=== PATIENT | female | born 1945 | race Caucasian/White ===

== ENCOUNTER → 2017-07-13 | Outpatient (CLI) | payer BC ==
[~2017-07-13] MED LIST: CLB/200 PO; CYAN10005 PO; CYCL0.052 OP; LORA10TA57 PO; MISCCAP80 PO; NSNN50; NXM/40 PO; VITA1CAP59 PO
[2017-07-13 12:13] LABS: BASO % 0.4 %; BASO ABS # 0.02 K/uL (0-0.2); COMPLETE YES; EOS % 1.2 %; HEMATOCRIT 37.4 % (37-47); IG% 0.2 %; LYMPH % 28.3 %; LYMPH ABS # 1.43 K/uL (1.2-3.4); MEAN CELL VOLUME 95.2 fL (80-100); MEAN CORPUSCULAR HEMOGLOBIN 32.1 pg (25-34); MEAN CORPUSCULAR HGB CONC 33.7 g/dl (32-36); MONO % 6.9 %; PLATELET COUNT 291 K/uL (130-400); RED BLOOD COUNT 3.93 M/uL (4.2-5.4); WHITE BLOOD COUNT 5.05 K/uL (4.8-10.8)
[2017-07-13 12:22] LABS: ESTIMATED AVERAGE GLUCOSE 111 mg/dl; HA1C FLAG Normal (Normal)
[2017-07-13 12:25] LABS: ALT/SGPT 27 U/L (12-78); AST/SGOT 21 U/L (15-37); BLOOD UREA NITROGEN 14 mg/dl (7-18); CALCIUM 8.8 mg/dl (8.5-10.1); CARBON DIOXIDE 29 mmol/L (21-32); CHLORIDE 102 mmol/L (98-107); GLUCOSE 83 mg/dl (70-99); POTASSIUM 4.6 mmol/L (3.5-5.1); SODIUM 136 mmol/L (136-145); URIC ACID 4.5 mg/dl (2.6-7.2)
[2017-07-13 12:34] LABS: ALB/GLOB RATIO 1.1 (0.9-2); ALKALINE PHOSPHATASE 99 U/L (45-117); CHOLESTEROL 269 mg/dl (0-200); CHOLESTEROL/HDL RATIO 3.9; HDL CHOLESTEROL 69 mg/dl; LDL CHOLESTEROL CALCULATED 186 mg/dl; PHOSPHORUS 3.3 mg/dl (2.5-4.9); TRIGLYCERIDES 72 mg/dl (0-150); VERY LOW DENSITY LIPOPROT CALC 14 mg/dl
--- NOTE | 2017-07-13 12:44 | DIAGNOSTIC IMAGING REPORT ---
CHEST 2 VIEWS ROUTINE CLINICAL HISTORY: CHEST CONGESTION dyspnea COMPARISON STUDY: 04/12/2016 FINDINGS: The bones soft tissues and hemidiaphragms are normal. The cardiomediastinal silhouette is normal. The lungs are clear. The pulmonary vasculature is normal. IMPRESSION: Negative chest. The above report was generated using voice recognition software. It may contain grammatical, syntax or spelling errors. Electronically signed by: Korey Selby M.D. 07/13/2017 12:43 PM Dictated Date/Time: 07/13/2017 12:43 PM
[2017-07-14 11:56] LABS: C-REACTIVE PROT HIGHSEN 3.4 MG/L
--- NOTE | 2017-07-17 09:18 | PULMONARY FUNCTION TEST ---
CLINICAL DATA: 72-year-old female with a height of 62 inches and a weight of [address] Michael for evaluation of shortness of breath and chest congestion. The patient apparent is using Symbicort. Spirometry pre- and post-bronchodilator, lung volumes, and DLCO were performed. FINDINGS: Pre-bronchodilator spirometry is within normal limits. FVC is 96% of predicted. FEV1 is 93% of predicted. [id number] is 82% of predicted. There was improvement in small airway flow after inhaled bronchodilator. FVC dropped by 2% to 94% of predicted. FEV1 increased 3% to 96% of predicted. [id number] improved 45% to 119% of predicted. Lung volumes demonstrated a slight reduction in residual volume at 62% of predicted. DLCO was normal at 80% of predicted. IMPRESSION: Normal baseline spirometry with improvement in small airway flow after inhaled bronchodilator possibly consistent with mild small airway obstruction. MTDD
--- NOTE | 2017-07-25 09:20 | CODING QUERY MEDICAL NECESSITY ---
CQSUPPORTING DIAGNOSIS NEEDED A supporting diagnosis is required for the test/procedure performed on this patient in order for us to be reimbursed by the patient's insurance. Please provide a supporting diagnosis for the following test/procedure listed below next to the test name along with your signature. *If there is no additional diagnosis for this patient that would support the following test/procedure please document that below next to the test/procedure. Test(s)/Procedure(s) that require a supporting diagnosis: DOS 07/13/17 C-REACTIVE PROTEIN HIGH SENSITIVITY TESTING Provider Signature: Date: Thank you Ariella Gómez Health Information Management Once completed, please kindly fax back to [phone] For questions please call [phone]
== END | disposition home or self-care (01) ==
LOC: C.RC 10:21
PROVIDERS: ATTEND Family Medicine
DX: R06.02 Shortness of breath (principal); R09.89 Other specified symptoms and signs involving the circulatory and respiratory systems; R73.09 Other abnormal glucose; E55.9 Vitamin D deficiency, unspecified; D51.9 Vitamin B12 deficiency anemia, unspecified

== ENCOUNTER → 2017-09-05 | Outpatient (CLI) | payer BC ==
[~2017-09-05] MED LIST changes: +LORA-749 PO; -LORA10TA57 PO
[2017-09-05 16:32] LABS: COMPLETE YES; HEMATOCRIT 37.6 % (37-47); IG% 0.9 %; LYMPH % 14.8 %; LYMPH ABS # 1.26 K/uL (1.2-3.4); MEAN CELL VOLUME 96.4 fL (80-100); MEAN CORPUSCULAR HEMOGLOBIN 32.1 pg (25-34); MEAN CORPUSCULAR HGB CONC 33.2 g/dl (32-36); MEAN PLATELET VOLUME 9.7 fL (7.4-10.4); MONO % 3.6 %; NEUT % 80.7 %; PLATELET COUNT 364 K/uL (130-400)
[2017-09-07 21:32] LABS: ALPHA-1-ANTITRYPSIN TC 67710E 142 MG/DL (83-199); IGG SERUM 901 mg/dL (694-1618)
== END | disposition home or self-care (01) ==
LOC: C.LAB 15:07
PROVIDERS: ATTEND Family Medicine
DX: R06.09 Other forms of dyspnea (principal)

== ENCOUNTER → 2017-10-03 | Outpatient (CLI) | payer BC | END | disposition home or self-care (01) | LOC: C.LAB1850 07:41 | PROVIDERS: ATTEND Internal Medicine Critical Care Medicine | DX: R06.09 Other forms of dyspnea (principal) ==

== ENCOUNTER → 2017-10-30 | Outpatient (CLI) | payer BC ==
--- NOTE | 2017-10-30 15:09 | MAMMOGRAPHY REPORT ---
BILATERAL DIGITAL SCREENING MAMMOGRAM TOMOSYNTHESIS WITH CAD: 10/30/2017 CLINICAL HISTORY: Routine screening. Patient has no complaints. TECHNIQUE: Breast tomosynthesis in addition to standard 2D mammography was performed. Current study was also evaluated with a Computer Aided Detection (CAD) system. COMPARISON: Comparison is made to exams dated: 09/07/2016 mammogram, 09/03/2015 mammogram, 07/23/2014 mammogram, 07/17/2013 mammogram, 07/11/2012 mammogram, and 07/05/2011 mammogram - [facility]. BREAST COMPOSITION: There are scattered areas of fibroglandular density in both breasts. FINDINGS: There are scattered benign rim calcifications in both breasts. Mild vascular calcificatio n in the breasts as well. No suspicious mass, architectural distortion or cluster of suspicious micro calcifications is seen. IMPRESSION: ACR BI-RADS CATEGORY 2: BENIGN There is no mammographic evidence of malignancy. A 1 year screening mammogram is recommended. The pa tient will receive written notification of the results. Approximately 10% of breast cancers are not detected with mammography. A negative mammographic report should not delay biopsy if a clinically suggestive mass is present. Deneen Horton M.D. ay/:10/30/2017 11:24:25 Student Assistance Counselor: Altagracia HWANG)(Ja), [facility] letter sent: Normal 1/2 BI-RADS Code: ACR BI-RADS Category 2: Benign
== END | disposition home or self-care (01) ==
LOC: C.MAMM 10:29
PROVIDERS: ATTEND Obstetrics & Gynecology
DX: Z12.31 Encounter for screening mammogram for malignant neoplasm of breast (principal)

== ENCOUNTER → 2017-10-30 | Outpatient (CLI) | payer BC | END | disposition home or self-care (01) | LOC: C.PAPS 16:25 | PROVIDERS: ATTEND Obstetrics & Gynecology | DX: Z01.419 Encounter for gynecological examination (general) (routine) without abnormal findings (principal) ==

== ENCOUNTER → 2018-02-26 | Outpatient (CLI) | payer BC ==
--- NOTE | 2018-02-26 10:39 | DIAGNOSTIC IMAGING REPORT ---
FUSION CT SINUSES W/O HISTORY: J31.0 Chronic [id number] Chronic sinusitis TECHNIQUE: Multiaxial CT images of the sinuses were performed reformatted in the coronal plane without the use of intravenous contrast. Fusion CT protocol was also obtained. COMPARISON STUDY: None. FINDINGS: The frontal sinuses, maxillary sinuses, left ethmoid air cells, and mastoid air cells are clear. Small fluid levels within the sphenoid sinuses. The right-sided sinuses hypoplastic in comparison to the left. Partial opacification of a single right ethmoid air cell with bubbly secretions. Left nasal septal deviation. The lamina papyracea and overall floors are intact. The bilateral ostomy units are patent. The pterygopalatine fossa are well-maintained. The orbits and visualized brain parenchyma are unremarkable. IMPRESSION: 1. Mild sinus disease involving the right ethmoid air cells and sphenoid sinuses as described above. 2. Left nasal septal deviation. Electronically signed by: Mark Ballard M.D. 02/26/2018 10:37 AM Dictated Date/Time: 02/26/2018 10:31 AM
== END | disposition home or self-care (01) ==
LOC: C.CTS 10:18
DX: J31.0 Chronic rhinitis (principal); J32.9 Chronic sinusitis, unspecified; J34.2 Deviated nasal septum

== ENCOUNTER → 2018-03-06 | Outpatient (CLI) | payer BC ==
[2018-03-06 09:38] LABS: BASO % 0.4 %; BASO ABS # 0.02 K/uL (0-0.2); EOS % 2.6 %; EOS ABS # 0.12 K/uL (0-0.5); HEMATOCRIT 37.2 % (37-47); HEMOGLOBIN 12.4 g/dL (12.0-16.0); IG# 0.01 K/uL (0.00-0.02); LYMPH % 40.4 %; MEAN CELL VOLUME 93.7 fL (80-100); MEAN CORPUSCULAR HEMOGLOBIN 31.2 pg (25-34); MEAN CORPUSCULAR HGB CONC 33.3 g/dl (32-36); MEAN PLATELET VOLUME 10.1 fL (7.4-10.4); MONO % 4.9 %; MONO ABS # 0.23 K/uL (0.11-0.59); NEUT % 51.5 %; NEUT ABS # 2.42 K/uL (1.4-6.5); PLATELET COUNT 305 K/uL (130-400); RED CELL DISTRIBUTION WIDTH CV 13.6 % (11.5-14.5); RED CELL DISTRIBUTION WIDTH SD 46.8 fL (36.4-46.3)
[2018-03-06 10:25] LABS: HEMOGLOBIN A1C 5.6 % (4.5-5.6)
[2018-03-06 13:45] LABS: ALBUMIN 3.5 gm/dl (3.4-5.0); ALT/SGPT 27 U/L (12-78); AST/SGOT 21 U/L (15-37); BLOOD UREA NITROGEN 20 mg/dl (7-18); CALCIUM 8.7 mg/dl (8.5-10.1); CARBON DIOXIDE 31 mmol/L (21-32); CHOLESTEROL 254 mg/dl (0-200); CREATININE 0.89 mg/dl (0.60-1.20); GLUCOSE 79 mg/dl (70-99); POTASSIUM 4.3 mmol/L (3.5-5.1); SODIUM 140 mmol/L (136-145); URIC ACID 5.3 mg/dl (2.6-7.2)
[2018-03-06 13:55] LABS: ALKALINE PHOSPHATASE 125 U/L (45-117); LDL CHOLESTEROL CALCULATED 168 mg/dl; TOTAL PROTEIN 7.4 gm/dl (6.4-8.2); TRANSFERRIN 258 mg/dl (200-360)
== END | disposition home or self-care (01) ==
LOC: C.LAB 07:45
PROVIDERS: ATTEND Family Medicine
DX: E88.81 Metabolic syndrome and other insulin resistance (principal); E55.9 Vitamin D deficiency, unspecified; D51.9 Vitamin B12 deficiency anemia, unspecified; E78.9 Disorder of lipoprotein metabolism, unspecified; R53.83 Other fatigue

== ENCOUNTER 2020-08-11 05:18 | Observation (INO) ==
--- NOTE | 2020-07-21 14:38 | PAT Medication Instructions ---
Medication Instructions Date of Service July 21, 2020 Home Medications Medication Instructions Recorded clindamycin HCl 300 mg capsule 600 mg PO ONCE #2 cap 07/06/20 Imodium Multi-Symptom Relief 1 tab PO QPM Probiotic 3,000 mmu cells PO QPM Restasis 2 drp OPHTHALMIC (EYE) BID Vitamin M-C-I-Iodine 1 tab PO 3XWK celecoxib [Celebrex] 200 mg PO BID cetirizine [Zyrtec] 5 mg PO DAILY PRN cyanocobalamin (vitamin B-12) [Vitamin B-12] 1,000 mcg PO 3XWK esomeprazole magnesium [Nexium] 40 mg PO QPM amlodipine 2.5 mg PO QPM resveratrol 1 tab PO QPM turmeric 400 mg PO QPM clindamycin HCl 300 mg capsule 600 mg PO ONCE acetaminophen [Tylenol Arthritis Pain] 1,300 mg PO Q12H PRN sodium chloride [Saline Nasal Mist] 2 spray INTRANASAL HS Continue as directed clindamycin HCl 300 mg capsule 600 mg PO ONCE ASK your surgeon for instructions celecoxib [Celebrex] 200 mg PO BID STOP taking 2 weeks before surgery resveratrol 1 tab PO QPM turmeric 400 mg PO QPM DO NOT take the morning of surgery Vitamin Z-A-X-Iodine 1 tab PO 3XWK cetirizine [Zyrtec] 5 mg PO DAILY PRN Take morning of surgery With a small sip of water, OTHERWISE NOTHING TO EAT OR DRINK AFTER MIDNIGHT: Restasis 2 drp OPHTHALMIC (EYE) BID acetaminophen [Tylenol Arthritis Pain] 1,300 mg PO Q12H PRN (if needed, may be taken up to four hours before surgery) Take evening before surgery Imodium Multi-Symptom Relief 1 tab PO QPM Probiotic 3,000 mmu cells PO QPM Restasis 2 drp OPHTHALMIC (EYE) BID cetirizine [Zyrtec] 5 mg PO DAILY PRN (if needed) esomeprazole magnesium [Nexium] 40 mg PO QPM amlodipine 2.5 mg PO QPM acetaminophen [Tylenol Arthritis Pain] 1,300 mg PO Q12H PRN (if needed) sodium chloride [Saline Nasal Mist] 2 spray INTRANASAL HS Other Notes If you have any questions please call us at [phone] or [phone] or [phone] or [phone]
--- NOTE | 2020-07-22 13:08 | Anesthesiology Consultation ---
Date of Service July 22, 2020 Assessment & Plan (1) Encounter for pre-operative examination: COVID Status: As of 07/22 assessment, patient denies travel to endemic area, known exposure/sick contacts, or symptoms of COVID19. Patient instructed that they and their household members must follow strict social distancing guidelines, wear a mask in public and avoid travel for 14 days prior to surgery. Preoperative COVID19 testing to be completed prior to surgery per surgeon's a rrangements (08/06 per pt). Patient made aware to self-isolate as much as possible between COVID testing and surgery. Patient will be traveling to her summer [place] in [place], [place] prior to surgery. That [facility] has far fewer cases of COVID-19 than [place]. She will be back one week prior to her COVID testing. Chart Review Chart Review: Acceptable Risk for Surgery and Patient seen in Pre Admission Testing Teaching & Discussion Instructed NPO after midnight before surgery, except medications with 15 cc of water. Medication instructions provided according to the PAT guidelines. History Surgery Operation Date: 08/11/20 12:50 Proposed Procedures p Left Total Knee Arthroplasty - Jaison Fisher MD Height/Weight Height: 5 ft 1 in Weight: 68 kg Allergies Allergy/AdvReac Type Severity Reaction Status Date / Time Penicillins Allergy Unknown hives Verified 07/16/20 11:08 azithromycin AdvReac Mild diarrhea Verified 07/16/20 11:08 [From Zithromax Z-Aaron] codeine AdvReac Unknown nausea/vomi Verified 07/16/20 11:08 ting lansoprazole AdvReac Unknown diarrhea Verified 07/16/20 11:08 Medications Home Medications Medication Instructions Recorded Confirmed Last Taken Imodium Multi-Symptom Relief 1 tab PO QPM 07/12/18 07/16/20 08/15/18 20:00 Probiotic 3,000 mmu cells PO QPM 07/12/18 07/16/20 08/15/18 20:00 Restasis 2 drp OPHTHALMIC (EYE) BID 07/12/18 07/16/20 08/16/18 02:00 Vitamin R-P-M-Iodine 1 tab PO 3XWK 07/12/18 07/16/20 07/27/18 20:00 celecoxib [Celebrex] 200 mg PO BID 07/12/18 07/16/20 08/15/18 20:00 cetirizine [Zyrtec] 5 mg PO DAILY PRN 07/12/18 07/16/20 08/15/18 20:00 cyanocobalamin (vitamin B-12) 1,000 mcg PO 3XWK 07/12/18 07/16/20 07/27/18 20:00 [Vitamin B-12] esomeprazole magnesium [Nexium] 40 mg PO QPM 07/12/18 07/16/20 08/15/18 20:00 amlodipine 2.5 mg PO QPM 08/16/18 07/16/20 08/15/18 20:00 resveratrol 1 tab PO QPM 01/06/20 07/16/20 Unknown turmeric 400 mg PO QPM 01/06/20 07/16/20 Unknown clindamycin HCl 300 mg capsule 600 mg PO ONCE #2 cap 07/06/20 07/16/20 Unknown acetaminophen [Tylenol Arthritis 1,300 mg PO Q12H PRN 07/16/20 07/16/20 Unknown Pain] sodium chloride [Saline Nasal Mist] 2 spray INTRANASAL HS 07/16/20 07/16/20 Unknown Past Medical History Medical History Allergic rhinitis Anemia Stable per patient Cervical spinal stenosis Denies limited ROM but does have paresthesias to LEs bilaterally Chronic obstructive pulmonary disease "mild" Deviated nasal septum GERD (gastroesophageal reflux disease) Well controlled and stable History of basal cell carcinoma History of hypothyroidism Has been off med for three months per PCP instructions- was only on Synthy roid 25mcg- feels well Hyperlipidemia -BORDERLINE-NO MEDS Hypertension Irritable bowel disease Osteoarthritis Personal history of peptic ulcer disease Temporomandibular joint disorder CLICKS DOES NOT LOCK Exercise / Class Metabolic Activity II 4-5 Yardwork/Stairs/Walk up hill (Does 1 FOS daily at home) Past Family History Family History Father Family history of diabetes mellitus Grandmother Family history of diabetes mellitus Family/Other No problems noted. Grandfather Family history- stomach cancer Other No family history of adverse response to anesthesia Past Surgical History Surgical History History of anesthesia reaction "shivering" History of basal cell carcinoma (BCC) excision History of bilateral tubal ligation History of colonoscopy History of dilatation and curettage X 3 History of esophagogastroduodenoscopy (EGD) History of right knee joint replacement Right TKA: 08/16/18: SAB x1 at L2/3 + PNB at [facility] History of tonsillectomy History of tooth extraction Hx of hemorrhoidectomy S/P sclerotherapy of varicose veins Past Anesthesia History No Hx of Anesthesia Complications (other than shiviering post-op) and No Family Hx of Anesthesia Complications History of PONV No Hx of PONV and No Hx of Motion Sickness Social History Smoking Status: Never smoker Do You Dip or Chew Tobacco: No Hx Alcohol Use: Yes Alcohol type: wine alcohol intake frequency: a few times a week Hx Substance Use: No substance use type: does not use Review of Systems Pt denies any recent chest pain (nothing other than GERD/heartburn), shortness of breath, palpitations, cough, fever, URI, or uncontrolled acid reflux. +rhinitis with reflexive cough Physical Exam Vital Signs BP: 127/83 P: 81bpm SPO2: 98% RA T: 97.9 F R: 12 ENMT Mouth: + dental restorations (one crown on lower L biscuspid); no chipped teeth and no loose teeth Thyromental Distance: > or= 3.5 Finger Breadths Mallampati Class: II Neck normal visual inspection; neck extension not limited Respiratory normal respiratory effort Auscultation: lungs clear to auscultation bilaterally Cardiovascular Rate/Rhythm: regular rate and regular rhythm Heart Sounds: no murmur Extremities: no edema Testing Laboratory Results PT 10.3 Seconds (9.0-12.0) 07/22/20 13:18 INR 1.0 (0.9-1.1) 07/22/20 13:18 APTT 27.3 Seconds (21.0-31.0) 07/22/20 13:18 Blood Type O Positive 07/22/20 13:18 Antibody Screen NEGATIVE 07/22/20 13:18 07/07/20 WBC: 5.85 H/H: 12.2/36.8 PLATELETS: 335 SODIUM: 140 POTASSIUM: 4.4 CHLORIDE: 106 CO2: 30 BUN: 20 CREATININE: 0.89 GLUCOSE: 90 Pulmonary Function Test Date: 07/17/17 Normal baseline spirometry with improvement in small airway flow after inhaled bronchodilator possibly consistent with mild small airway obstruction. Other Testing Electrocardiogram Date: 01/06/20 Findings: + NSR @ (62) and + no change from (Jul 19, 2018) Chest X-Ray Date: 01/06/20 Findings: + NAD
[2020-07-22 14:52] LABS: Partial Thromboplastin Time 27.3 Seconds (21.0-31.0); Prothrombin Time 10.3 Seconds (9.0-12.0)
[2020-08-11] MEDS ORDERED: LR 500ML BOLUS, THEN 15ML/HR IV SCH (06:00)
[2020-08-11] MEDS ORDERED: METOCLOPRAMIDE HCL 10 MG TABLET PO SCH (06:00)
[2020-08-11] MEDS ORDERED: TRANEXAMIC ACID 1,000 MG **IV Intra-op IV SCH (06:00)
[2020-08-11] MEDS ORDERED: ACETAMINOPHEN 500 MG TAB PO SCH (06:00)
[2020-08-11] MEDS ORDERED: BUPIVACAINE LIPOSOME/PF 266 MG, BUPIVACAINE/EPINEPHRINE 50 ML, SODIUM CHLORIDE 0.9% 30 ... INFIL SCH (06:00)
[2020-08-11] MEDS ORDERED: ceFAZolin 2000MG 2,000 MG/15 ML SYR IV SCH (06:00)
[2020-08-11] MEDS ORDERED: GABAPENTIN 300 MG CAP PO SCH (06:00)
[2020-08-11] MEDS ORDERED: FAMOTIDINE 20 MG TAB PO SCH (06:00)
[2020-08-11] MEDS ORDERED: LR 60ML/HR IV SCH (06:00)
[2020-08-11] MEDS ORDERED: fentaNYL citrate 100 MCG/2 ML VIAL ONE (06:20)
[2020-08-11] MEDS ORDERED: MIDAZOLAM HCL 1 MG/ML 2ML VIAL ONE (06:21)
[2020-08-11] MEDS ORDERED: PROPOFOL IV EMULSION 10 MG/ML 20 ML VIAL IV ONE (06:22)
[2020-08-11] MEDS ORDERED: BUPIVACAINE/EPINEPHRINE 0.25% 1:200,000 30 ML VIAL ONE ×2 (06:26→06:28)
[2020-08-11] MEDS ORDERED: BUPIVACAINE 0.5 % 5 MG/1 ML PF 10ML VIAL ONE (06:26)
[2020-08-11] MEDS ORDERED: DEXAMETHASONE SOD INJ 4 MG/ML VIAL ONE (06:27)
[2020-08-11] MEDS ORDERED: BACITRACIN INJ 50,000 UNIT VIAL ONE (06:28)
[2020-08-11] MEDS ORDERED: BUPIVACAINE LIPOSOME 1.3% 266 MG/20 ML VIAL ONE (06:28)
[2020-08-11] MEDS ORDERED: SODIUM CHLORIDE 0.9% PF 50 ML VIAL ONE (06:28)
--- NOTE | 2020-08-11 06:51 | History & Physical Bridge Note ---
Date of Service August 11, 2020 History & Physical Bridge Note I have examined the patient, reviewed the History & Physical and in the interval since the performance of the History & Physical I have noted the following changes of clinical significance: no changes noted
[2020-08-11] MEDS ORDERED: fentaNYL citrate 100 MCG/2 ML VIAL IV PRN (07:02)
[2020-08-11] MEDS ORDERED: ePHEDrine sulfate 50 MG/ML AMP IV PRN (07:02)
[2020-08-11] MEDS ORDERED: ONDANSETRON INJ 2 MG/ML 2 ML VIAL IV PRN ×2 (07:02→10:00)
[2020-08-11] MEDS ORDERED: ATROPINE SULFATE 0.1 MG/ML 10ML SYR IV PRN (07:02)
--- NOTE | 2020-08-11 08:34 | Post Operative Brief Note ---
PG Immediate Post Op with CF Date of Surgery August 11, 2020 Pre & Post Diagnosis Operation Date: 08/11/20 07:00 Pre-Op Diagnosis: Left Knee Degenerative Joint Disease Post-Op Diagnosis: Left Knee Degenerative Joint Disease I identified the patient and participated in the time-out.: Yes Procedure Operation Date: 08/11/20 07:00 Actual Procedures p Left Total Knee Arthroplasty, Cemented(Left) - Jaison Fisher MD Surgeon Jaison Fisher MD [employer], [facility] Estimated Blood Loss 50 Findings Consistent with Post-Op Diagnosis Fluids 700 cc Specimens Specimen Description: Permanent Specimen A: Left knee bone and tissue Drains [place] Catheter Anesthesia Type Spinal MAC Complications none Disposition Accompanied Patient To Recovery: No Disposition: Recovery Room
--- NOTE | 2020-08-11 08:46 | Operative Report ---
Post Operative Report Pre & Post Diagnosis Operation Date: 08/11/20 07:00 Pre-Op Diagnosis: Left Knee Degenerative Joint Disease Post-Op Diagnosis: Left Knee Degenerative Joint Disease I identified the patient and participated in the time-out.: Yes Procedure Operation Date: 08/11/20 07:00 Actual Procedures p Left Total Knee Arthroplasty, Cemented(Left) - Jaison Fisher MD Surgeon Jaison Fisher MD Fly [employer], PAC Estimated Blood Loss 50 Findings Consistent with Post-Op Diagnosis Operative findings revealed advanced left knee DJD. She had extensive grade 4 disease in all 3 compartments with a valgus deformity to her knee and a tight IT band. She had a flexion contracture about 10 degrees and a moderate sized knee joint effusion. Fluids 700 cc. Specimens Left knee sent for pathology. Drains None. Anesthesia Type Spinal MAC Complications none Disposition Accompanied Patient To Recovery: No Disposition: Recovery Room Indications Patient is a 75-year-old female has a long history of bilateral knee pain discomfort. She has been through extensive conservative treatment the past. She had a right knee replaced about 2 years ago and is done well from this. She continued be limited by left knee pain and discomfort. She failed all conservative measures and elected proceed with total knee arthroplasty. Description of Procedure Operative implants consist of: 1. Biomet Vanguard size 62.5 left posterior stabilized femoral component. 2. Biomet size 67 tibial tray. 3. 10 mm posterior stabilized polyethylene insert. 4. 28 x 8 all polypatella. Patient was taken to the operating identified and placed on the operating table supine position but all contact areas were properly padded. IV antibiotics arrived by anesthesia team. Spinal anesthetic and abductor canal block had been provided in the holding area. [place] catheter was placed in sterile fashion. A left thigh turn was then placed in the left lower extremities and prepped draped in usual sterile fashion. The left leg was elevated exsanguinated with use of an Esmarch and turns placed at 300 mmHg. An anterior posterior left knee was then performed to longitudinal incision centered over the patella. Sharp dissection got through subcutaneous is down the extensor mechanism. A medial parapatellar arthrotomy incision was made. Some subperiosteal dissection was carried out medially. The fat pad was resected from each patella tendon. Lateral patellofemoral ligament was released. Patella was subluxated laterally and the knee was flexed. The osteophytes were taken off distal femur. The ACL and PCL were then released from the distal femur and the tibia subluxate anteriorly. The external tibial alignment jig was then placed in the interface the tibia and adjusted 12 mm medially. Proximal tibial cut was made to remove about 2 to 3 mm of bone from the most deficient aspect medial till plateau. The tibia was sized to a size 67. Attention drawn the femur. The distal femur was entered with a sharp drop with intramedullary canal was suction. A left 5 degree valgus cutting guide was placed. The distal femoral cutting block was pinned in place. The distal femoral cut was made to take an additional 3 mm of bone off distal femur. The femur was then sized to a size 62.5. I did downsize this almost an entire size due to the narrow medial and lateral dimensions of her femur. We brought the knee out in extension I did do her release and pie crusting of the IT band in order to equalize extension gap. The knee was then flexed. The AP cutting block was pinned parallel to the epicondylar axis which was 6 degrees of external rotation. The anterior cut, anterior chamfer, posterior cut, posterior chamfer cuts were made. Box cutting guide was placed in just slight lateral and the box cut was made. The knee was flexed. The remnants of the medial lateral menisci were excised. The osteophytes were taken off the posterior aspect of her femur. A trial femoral component was placed. The tibial tray was pinned in maximum external rotation and the drill and stem punch were used to create defect in proximal tip for the tibial tray. Knee was then trialed and 10 mm insert fit most appropriately. Attention drawn the patella. The patella was quite worn. It was measured and the thickness was 19. I cut this down to 12 mm in thickness. It was sized to a size 28 patella. The lug holes were drilled for the 28 patella. The lateral osteophyte was removed. Patella button was placed. Knee was taken through range of motion patella tracked nicely with no thumbs test. We elected to place these implants. All trial implants were removed. A bone plug was placed in the distal femur limit blood loss put a double batch Palacos G cement was mixed. A Biomet Vanguard size 62.5 left posterior stabilized femoral component, size 67 tibial tray, a 10 mm posterior stabilized polyethylene insert, and a 28 x 8 all polypatella were then cemented in place. Knee was brought out in full extension total cement hardened On cement check was then performed. The pericapsular tissues were injected with total 100 cc of combination of 20 cc of Exparel, 30 cc normal saline, 50 cc of quarter percent Marcaine with epinephrine. Patient did receive 1 g tranexamic acid. The tourniquet was then let down for final tourniquet time of 53 minutes. Hemostasis assured use electrocautery. Extensor mechanism closed with combina tion 1 PDS suture #1 Vicryl suture in [id number]-egdix fashion. Extensor mechanism checked found to be intact with the subcutaneous tissue then closed with 2 Dexon suture in a buried interrupted fashion skin was closed skin teofilo. Leg was then cleaned and dried and sterile dressing both Xeroform, 4 fourths, sterile cast padding, Dwayne bandage applied. Patient then transferred to the recovery room in stable condition. Patient tolerated procedure well and there were no complications. Eric Parikh, my physician orthotics assistant, was present for the entire procedure. His assistance was required and essential for appropriate patient positioning, prepping and draping, surgical exposure, retraction, performing the technical details of the operation, placing the implants, closing the wound, and placement of the sterile bandage. I attest to the content of the Intraoperative Record and any orders documented therein. Any exceptions are noted below.
--- NOTE | 2020-08-11 08:58 | XRay Report ---
LEFT KNEE 2 VIEWS History: Left total knee arthroplasty. Degenerative arthritis. Postop. FINDINGS: The patient is status post a left total knee arthroplasty. The hardware is intact. No fract ure or dislocation. Skin teofilo are in place. IMPRESSION: Left total knee arthroplasty. No evidence for hardware complication. ACT 112: Negative or not required by law. Electronically signed by: Mark Ballard M.D. 08/11/2020 8:57 AM
--- NOTE | 2020-08-11 09:51 | Anesthesiology Progress Note ---
Date of Service August 11, 2020 Anesthesia Post Procedure Vital Signs Vital Signs: Temp Pulse Pulse Resp BP Pulse Ox 08/11/20 09:30 36.3 C L 61 13 124/70 100 08/11/20 09:20 62 13 134/73 100 08/11/20 09:10 63 12 121/67 100 08/11/20 09:00 62 13 121/64 100 08/11/20 08:50 69 19 112/66 100 08/11/20 08:40 36.1 C L 70 16 112/64 100 08/11/20 05:48 36.7 C 82 18 162/95 H 98 Transfer of Care Handoff Completed per policy Notes Mental Status: alert / awake / arousable Patient Amnestic to Procedure: Yes Nausea / Vomiting: adequately controlled Pain: adequately controlled Airway Patency, RR, SpO2: stable & adequate BP & HR: stable & adequate Hydration State: stable & adequate Neuraxial Anesthesia: was administered and sensory block is resolving Anesthetic Complications: no major complications apparent and Pt Satisfied with anesthetic care
[2020-08-11] MEDS ORDERED: NALOXONE HCL 0.4 MG/1 ML VIAL/CARP IV PRN (10:00)
[2020-08-11] MEDS ORDERED: bisacodyL 10 MG SUPP PR PRN (10:00)
[2020-08-11] MEDS ORDERED: CETIRIZINE HCL 10 MG TABLET PO PRN (10:00)
[2020-08-11] MEDS ORDERED: MAGNESIUM HYDROXIDE SUSP 30 ML UDC PO PRN (10:00)
[2020-08-11] MEDS ORDERED: HYDROmorphone INJ 0.5 MG/0.5 ML SYR IV PRN (10:00)
[2020-08-11] MEDS ORDERED: ALUMINUM/MAGNESIUM SUSP 30 ML UDC PO PRN (10:00)
[2020-08-11] MEDS ORDERED: [UNRECOGNIZED DRUG - OTHER] PO SCH (10:00)
[2020-08-11] MEDS ORDERED: METOCLOPRAMIDE HCL INJ 5 MG/ML 2 ML VIAL IV PRN (10:00)
[2020-08-11] MEDS: ASPIRIN 81 MG ECTAB PO SCH ×2 (11:58→21:52)
[2020-08-11] MEDS: DOCUSATE SODIUM 100 MG CAP PO SCH ×2 (11:58→21:49)
[2020-08-11] MEDS: MULTIVITAMIN TAB PO SCH (11:58)
[2020-08-11] MEDS: KETOROLAC TROMETHAMINE 15 MG/ML VIAL IV SCH ×3 (11:58→22:03)
[2020-08-11] MEDS: SODIUM CHLORIDE 0.9% 1000ML 1,000 ML IV SCH ×2 (12:03→21:49)
--- NOTE | 2020-08-11 13:18 | Progress Notes ---
DATE: 08/11/2020 SUBJECTIVE: A 75-year-old female postop from a left knee replacement. She is doing well. Really not having any pain yet. Nerve function is just gradually returning. No chest pain or shortness of breath. Not feeling dizzy or lightheaded. OBJECTIVE: VITAL SIGNS: Temperature 36.4. Vital signs stable. GENERAL: Shows a pleasant elderly female. She is sitting up in bed and talking to her . She looks comfortable. LUNGS: Clear to auscultation. HEART: Has a regular rate and rhythm. ABDOMEN: Soft, nontender, nondistended. EXTREMITIES: Grossly neurovascularly intact except as follows: Examination of the left leg reveals the leg to be well aligned. She can just slightly dorsiflex her foot but it is still weak. She has better but incomplete foot and toe flexion. She has got brisk refill. Good distal pulse. X-RAYS: X-rays of the left knee from the recovery room were reviewed. It shows a left cemented posterior stabilized total knee arthroplasty. Components looked to be in good position. No signs of problems. ASSESSMENT: A 75-year-old female postoperative from left knee replacement, doing well. Pain is controlled. Her nerve function is just returning. PLAN: 1. DVT prophylaxis including thigh-high TEDs, SCDs, and aspirin twice a day. 2. PT/OT. Weight bear as tolerated. Left total knee protocol. 3. Pain control, doing okay with current pain regimen. We will have to adjust meds as the spinal wears off. 4. IV antibiotics x24 hours. 5. Disposition: Plan to discharge to home with some home health once adequately recovered and medically stable.
[2020-08-11] MEDS ORDERED: TRANEXAMIC ACID / 0.7% NACL 1,000 MG/100 ML BAG IV SCH (14:37)
[2020-08-11] MEDS: ACETAMINOPHEN 500 MG TAB PO SCH ×2 (15:11→21:54)
[2020-08-11] MEDS: ceFAZolin 1000MG 1,000 MG/7.5 ML SYR IV SCH ×2 (15:11→22:03)
[2020-08-11] MEDS: FERROUS GLUCONATE 324 MG TAB PO SCH (17:29)
[2020-08-11] MEDS: ASCORBIC ACID 500 MG TAB PO SCH (17:31)
[2020-08-11] MEDS ORDERED: NON-FORMULARY MEDICATION (Turmeric 400 MG) PO SCH (21:00)
[2020-08-11] MEDS ORDERED: RESVERATROL PO SCH (21:00)
[2020-08-11] MEDS: LOPERAMIDE HCL 2 MG CAP PO SCH (21:49)
[2020-08-11] MEDS: SENNA 8.6 MG TAB PO SCH (21:49)
[2020-08-11] MEDS: SIMETHICONE 80 MG CHEW PO SCH (21:50)
[2020-08-11] MEDS: PANTOprazole 40 MG TAB PO SCH (21:52)
[2020-08-11] MEDS: amLODIPine BESYLATE 5 MG TAB PO SCH (21:53)
[2020-08-11] MEDS: ADVANCED PROBIOTIC 1250 MG CAPSULE PO SCH (21:53)
[2020-08-11] MEDS: SODIUM CHLORIDE 0.65% NA SOLN 45 ML (OCEAN) NAE SCH (21:54)
[2020-08-11] MEDS: traMADol HCL 50 MG TABLET PO PRN (23:47)
[2020-08-12] MEDS: ACETAMINOPHEN 500 MG TAB PO SCH ×3 (05:55→22:04)
[2020-08-12] MEDS: KETOROLAC TROMETHAMINE 15 MG/ML VIAL IV SCH ×4 (05:55→22:04)
[2020-08-12 05:58] LABS: Hematocrit (blood only) 28.5 % (37-47); Hemoglobin 9.3 g/dL (12.0-16.0); Mean Corpuscular Hemoglobin 30.9 pg (25-34); Mean Corpuscular Hgb Conc 32.6 g/dL (32-36); Mean Corpuscular Volume 94.7 fL (80-100); Mean Platelet Volume 10.2 fL (7.4-10.4); Platelet Count 265 K/uL (130-400); RDW Coefficient of Variation 13.3 % (11.5-14.5); RDW Standard Deviation 46.3 fL (36.4-46.3); Red Blood Count 3.01 M/uL (4.2-5.4); White Blood Count 12.19 K/uL (4.8-10.8)
[2020-08-12 06:22] LABS: BUN Creatinine Ratio 23.2 (10-20); Calcium 8.2 mg/dl (8.5-10.1); Est GFR (African American) 87.4; Est GFR (Non-African American) 75.4; Potassium 3.6 mmol/L (3.5-5.1)
[2020-08-12] MEDS ORDERED: CYANOCOBALAMIN 500 MCG TABLET (VITAMIN B-12) PO SCH (09:00)
[2020-08-12] MEDS: ASCORBIC ACID 500 MG TAB PO SCH ×2 (09:11→17:58)
[2020-08-12] MEDS: MULTIVITAMIN TAB PO SCH (09:11)
[2020-08-12] MEDS: FERROUS GLUCONATE 324 MG TAB PO SCH ×2 (09:11→17:58)
[2020-08-12] MEDS: ASPIRIN 81 MG ECTAB PO SCH ×2 (09:11→20:48)
[2020-08-12] MEDS: DOCUSATE SODIUM 100 MG CAP PO SCH ×3 (09:12→16:34)
[2020-08-12] MEDS: traMADol HCL 50 MG TABLET PO PRN ×2 (13:08→20:51)
[2020-08-12] MEDS: SENNA 8.6 MG TAB PO SCH ×2 (16:34→20:50)
[2020-08-12] MEDS: LOPERAMIDE HCL 2 MG CAP PO SCH (16:35)
[2020-08-12] MEDS: SIMETHICONE 80 MG CHEW PO SCH (16:35)
[2020-08-12] MEDS: amLODIPine BESYLATE 5 MG TAB PO SCH (20:48)
[2020-08-12] MEDS: SODIUM CHLORIDE 0.65% NA SOLN 45 ML (OCEAN) NAE SCH (20:49)
[2020-08-12] MEDS: ADVANCED PROBIOTIC 1250 MG CAPSULE PO SCH (20:49)
--- NOTE | 2020-08-12 20:49 | Progress Notes ---
DATE: 08/12/2020 SUBJECTIVE: A 75-year-old female postop day 1 from a left knee replacement. She is doing pretty well. Having some pain but manageable. No chest pain or shortness of breath. Not feeling dizzy or lightheaded. OBJECTIVE: VITAL SIGNS: Temperature is 36.6. Vital signs stable. GENERAL: Shows a pleasant elderly female. She is lying in bed, looks pretty comfortable. EXTREMITIES: Examination of the left leg reveals the leg to be well aligned. Dressing is clean, dry and intact. She can dorsiflex and plantarflex her foot appropriately. She is neurologically intact. LABORATORY DATA: Hemoglobin 9.3. Hematocrit 28.5. White cell count 12.19. Electrolytes are stable. ASSESSMENT: A 75-year-old female postoperative day 1 from a left knee replacement. She is doing pretty well. Pain is reasonably well controlled. Therapy went okay today. PLAN: 1. DVT prophylaxis including thigh-high TEDs, SCDs, and aspirin twice a day. 2. PT/OT. Weight bear as tolerated. Left total knee protocol. 3. Pain control, doing okay with current pain regimen. 4. Disposition: Plan to discharge to home with some home health likely later tomorrow.
[2020-08-12] MEDS: PANTOprazole 40 MG TAB PO SCH (20:50)
[2020-08-13] MEDS: KETOROLAC TROMETHAMINE 15 MG/ML VIAL IV SCH (05:31)
[2020-08-13] MEDS: ACETAMINOPHEN 500 MG TAB PO SCH ×2 (05:31→13:25)
[2020-08-13 07:03] LABS: Basophils # (auto) 0.03 K/uL (0-0.2); Basophils % (auto) 0.3 %; Eosinophils # (auto) 0.05 K/uL (0-0.5); Eosinophils % (auto) 0.4 %; Hematocrit (blood only) 31.5 % (37-47); Hemoglobin 10.5 g/dL (12.0-16.0); Immature Granulocytes # (auto) 0.02 K/uL (0.00-0.02); Immature Granulocytes % (auto) 0.2 %; Lymphocytes % (auto) 18.4 %; Mean Corpuscular Hemoglobin 31.8 pg (25-34); Mean Corpuscular Hgb Conc 33.3 g/dL (32-36); Mean Corpuscular Volume 95.5 fL (80-100); Mean Platelet Volume 10.7 fL (7.4-10.4); Monocytes % (auto) 10.5 %; Neutrophils % (auto) 70.2 %; Platelet Count 290 K/uL (130-400); RDW Coefficient of Variation 13.5 % (11.5-14.5); RDW Standard Deviation 47.1 fL (36.4-46.3)
[2020-08-13] MEDS: ASPIRIN 81 MG ECTAB PO SCH (08:32)
[2020-08-13] MEDS: ASCORBIC ACID 500 MG TAB PO SCH ×2 (08:32→10:07)
[2020-08-13] MEDS: FERROUS GLUCONATE 324 MG TAB PO SCH ×2 (08:32→10:07)
[2020-08-13] MEDS: DOCUSATE SODIUM 100 MG CAP PO SCH (08:33)
[2020-08-13] MEDS: MULTIVITAMIN TAB PO SCH ×2 (08:33→10:07)
[2020-08-13] MEDS: traMADol HCL 50 MG TABLET PO PRN (08:52)
--- NOTE | 2020-08-13 20:27 | Progress Notes ---
DATE: 08/13/2020 SUBJECTIVE: A 75-year-old female postop day 2 from a left knee replacement. She is doing okay. Pain has been controlled. She is a little bit nauseated this morning. No chest pain or shortness of breath. Not feeling dizzy or lightheaded. OBJECTIVE: VITAL SIGNS: Temperature 36.6. Vital signs stable. GENERAL: Shows a pleasant, middle-aged female. She is sitting up in bed, looks reasonably comfortable. EXTREMITIES: Examination of the left leg reveals the leg to be well aligned. Dressing is clean, dry with just a little bit of bloody drainage. She can dorsiflex and plantarflex her foot appropriately. She can do a good straight leg raise. ASSESSMENT: A 75-year-old female postoperative day 2 from left knee replacement, doing pretty well. A little nausea, likely related to the pain medicines. PLAN: 1. DVT prophylaxis including thigh-high TEDs, SCDs, and aspirin twice a day. 2. PT/OT. Weight bear as tolerated. Left total knee protocol. 3. Pain control, doing well with current pain regimen. We will send her home with some Magnoliafran to help with nausea. 4. Disposition: Plan to discharge to home with some home health today.
--- NOTE | 2020-08-17 19:25 | Discharge Summary ---
Date of Service August 17, 2020 Admission HPI Per Admitting Provider Documented in the H & P Admission Exam (Per Admitting) Constitutional Documented in the H & P Discharge Data Consultations 08/11/20 10:00 Consult Case Management - Discharge Planning Routine Procedures Performed Operation Date: 08/11/20 07:00 Actual Procedures p Left Total Knee Arthroplasty, Cemented(Left) - Jaison Fisher MD Hospital Course (1) Status post total left knee replacement: This patient is a 75 year old female admitted on 08/11/20 and underwent total knee arthroplasty. She tolerated the procedure well and there were no complications. Transferred to the PACU post op and later to the orthopedic floor for further care. She was given ancef for antibiotic prophylaxis. She was also given FERNANDO stockings, SCDs, and aspirin for DVT prophylaxis. Hemoglobin, hematocrit, and vital signs were monitored during her hospital stay and remained stable. Did not require any blood transfusions. There were no complications during her hospital stay. By post op day #2 the patient was tolerating a regular diet, pain was reasonably controlled with oral pain medicine, and she was participating in physical therapy. On post op day #2 the patient was discharged home and set up with home health care. She was given printed discharge instructions including prescriptions for extra strength tylenol, aspirin, iron supplement, zofran, and tramadol. Continue physical therapy, weight bearing as tolerated. Continue FERNANDO stockings. Follow up approximately 2 weeks post op or sooner if there are problems or concerns. Coding Level of Care Code None Diagnoses Status post total left knee replacement Z96.652
== END 2020-08-13 13:52 | disposition home or self-care (01) ==
LOC: 3E 05:18 → ASU 05:18

== ENCOUNTER 2021-12-19 13:44 | Inpatient (IN) ==
[2021-12-19] MEDS ORDERED: CYCLOBENZAPRINE HCL 10 MG TAB PO STA (14:05)
--- NOTE | 2021-12-19 14:13 | Emergency Department Note ---
History of Present Illness General Chief Complaint: Back Injury/Pain Stated Complaint: BACK PAIN, LE NUMBNESS, HARD TIME WALKING Time Seen by Provider: 12/19/21 13:55 History of Present Illness Provider Complaint: back pain Onset (ago): day(s) 2 Duration: progressively worsening Similar Symptoms Previously: No Location: lumbar spine Quality: + sharp, + crushing and + spasming Radiation: none Current Pain Intensity: 9 Relieved By: + immobilization Exacerbated By: + movement Context: + bending (shoveling snow); no trauma or no IV drug use Associated symptoms: + weakness, + numbness and + difficulty walking; no fatigue, no syncope, no loss of sensation in lower extremities, no increased urinary urgency, no increased urinary frequency, no urinary incontinence, no fecal incontinence, no a change in bowel habits, no fever, no chills, no abdominal pain, no dysuria, no hematuria, no parasthesias, no arthralgias or no myalgias Home Medications Medication Instructions Recorded Confirmed Type Vitamin Q-S-Y-Iodine 1 tab PO 3XWK 07/12/18 12/19/21 History celecoxib 200 mg capsule (Celebrex) 200 mg PO BID 07/12/18 12/19/21 History cyanocobalamin (vitamin B-12) 1,000 mcg PO 3XWK 07/12/18 12/19/21 History 1,000 mcg tablet (Vitamin B-12) cyclosporine 0.05 % eye drops in a 2 drp OPB BID 07/12/18 12/19/21 History dropperette (Restasis) esomeprazole magnesium 40 mg 40 mg PO QPM 07/12/18 12/19/21 History capsule,delayed release (Nexium) lactobacillus combination no.4 3 3,000 mmu cells PO QPM 07/12/18 12/19/21 History billion cell capsule (Probiotic) loperamide-simethicone 2 mg-125 mg 1.5 tab PO QPM PRN 07/12/18 12/19/21 History tablet (Imodium Multi-Symptom Relief) amlodipine 2.5 mg tablet 2.5 mg PO QPM 08/16/18 12/19/21 History resveratrol 1 tab PO QPM 01/06/20 12/19/21 History turmeric 400 mg capsule 400 mg PO QPM 01/06/20 12/19/21 History acetaminophen 650 mg 1,300 mg PO Q12H PRN 07/16/20 12/19/21 History tablet,extended release (Tylenol Arthritis Pain) sodium chloride 0.65 % nasal spray 2 spray INTRANASAL HS PRN 07/16/20 12/19/21 History aerosol (Saline Nasal Mist) clindamycin HCl 300 mg capsule 600 mg PO ONCE 12/19/21 12/19/21 History loratadine 10 mg tablet 10 mg PO PM PRN 12/19/21 12/19/21 History tramadol 50 mg tablet 50 mg PO BID PRN 12/19/21 12/19/21 History Allergies Allergy/AdvReac Type Severity Reaction Status Date / Time Penicillins Allergy Unknown hives Verified 12/19/21 15:46 azithromycin AdvReac Mild diarrhea Verified 12/19/21 15:46 [From Zithromax Z-Aaron] codeine AdvReac Unknown nausea/vomi Verified 12/19/21 15:46 ting lansoprazole AdvReac Unknown diarrhea Verified 12/19/21 15:46 Past Med/Surg History Medical History Allergic rhinitis Anemia Stable per patient Cervical spinal stenosis Denies limited ROM but does have paresthesias to LEs bilaterally Chronic obstructive pulmonary disease "mild" Deviated nasal septum Dysfunction of left rotator cuff GERD (gastroesophageal reflux disease) Well controlled and stable Hip bursitis, left History of basal cell carcinoma History of hypothyroidism Has been off med for three months per PCP instructions- was only on Synt hyroid 25mcg- feels well Hyperlipidemia -BORDERLINE-NO MEDS Hypertension Irritable bowel disease Osteoarthritis Personal history of peptic ulcer disease Temporomandibular joint disorder CLICKS DOES NOT LOCK Surgical History History of anesthesia reaction "shivering" History of basal cell carcinoma (BCC) excision History of bilateral tubal ligation History of colonoscopy History of dilatation and curettage X 3 History of esophagogastroduodenoscopy (EGD) History of right knee joint replacement Right TKA: 08/16/18: SAB x1 at L2/3 + PNB at [facility] History of tonsillectomy History of tooth extraction Hx of hemorrhoidectomy S/P sclerotherapy of varicose veins Status post right knee replacement Family History Father Family history of diabetes mellitus Grandmother Family history of diabetes mellitus Family/Other No problems noted. Grandfather Family history- stomach cancer Other No family history of adverse response to anesthesia Social History Smoking Status: Never smoker Second Hand Exposure: Yes (ON OCC-SOCIAL EVENTS); Hx Alcohol Use: Yes Alcohol type: wine Hx Substance Use: No Preferred Language: Kazakh Communication Ability: Effective Visual Impairment: No Limitations Mobile Architect Required: No Beliefs That Will Affect Care: None marital status: Current Living Situation: Spouse Feels Safe at Home: Yes Assistive Devices: Glasses and Walker Review of Systems A total of 10 systems reviewed and were otherwise negative Physical Exam Vital Signs Vital Signs - 24 hr 12/19/21 13:47 12/19/21 13:59 12/19/21 16:12 Temperature 36.5 C Temperature Source Temporal Artery Scan Pulse Rate 82 Pulse Rate [Apical] 103 H 81 Respiratory Rate 18 16 16 Respiratory Effort / Characteristics Non-Labored Respiratory Depth Normal Blood Pressure [Right Arm] 172/91 H 191/114 H Blood Pressure Mean [Right Arm] 118 139 Pulse Oximetry 100 93 99 Oxygen Delivery Method Room Air Room Air Sepsis Recent Fever Within 48 Hours No Sepsis New/Unexplained Change in Mental Status No Sepsis Action Taken by Nursing No Action Required Physical Exam GENERAL: She is oriented to person, place, and time. She appears well-developed and well-nourished. She does not appear distressed. HENT: Exam performed. -Head: Normocephalic and atraumatic. -Right Ear: External ear normal. No mastoid tenderness. -Left Ear: External ear normal. No mastoid tenderness. -Mouth/Throat: The oropharynx is clear and moist. No trismus in the jaw. No dental abscesses or uvula swelling. No oropharyngeal exudate or tonsillar abscesses. EYES: Conjunctivae and EOM are normal. Pupils are equal, round, and reactive to light. Right eye exhibits no discharge. Left eye exhibits no discharge. No scleral icterus. NECK: Normal range of motion. Neck supple. No JVD present. No spinous process tenderness present. No carotid bruit present. No rigidity. No tracheal deviation and normal range of motion present. No Brudzinski's sign and no Kernig's sign noted. CV: Normal rate, regular rhythm, normal heart sounds and intact distal pulses. There is no peripheral edema. Palpable radial pulses bue. PULM/CHEST: Effort normal and breath sounds normal. No respiratory distress. No stridor. She has no wheezes. She has no rales. -Chest Wall: She exhibits no tenderness. ABD: The abdomen is soft. Bowel sounds are normal. She has no distension. No mass is present. There is no tenderness. There is no rebound, no guarding, no Berg's sign and no tenderness at McBurney's point. Rovsig negative MUSC/SKEL: Pain on palpation of the lumbar spine reproducing chief complaint. No pain on palpation of the cervical or thoracic spine. LYMPH: No cervical adenopathy. NEURO: She is alert and oriented to person, place, and time. Patient is in able to ambulate. Saddle paresthesias. SKIN: Skin is warm and dry. She is not diaphoretic. PSYCH: She has a normal mood and affect. Behavior is normal. Judgment and thought content normal. Course Course 1355: The patient was evaluated in room B2. A complete history and physical exam was performed Cardiac monitoring: An order was placed for continuous cardiac monitoring. The monitor shows a rate of 80 with sinus rhythm 1606: Vital signs stable. MRI Shows broad posterior disc bulge with small focal central disc protrusion in conjunction with ligamentum and facet hypertrophy t hat results in severe canal narrowing there is significant crowding/mass-effect of the cauda equina I at L4-L5. There is also small broad-based posterior disc bulge at L3-L4 with moderate central canal narrowing. There is also L5-S1 small broad-based posterior disc bulge with ligamentum and facet hypertrophy resulting in moderate to severe stenosis. I did discuss these findings with Dr. Salazar on-call spine surgery who states he will be in to evaluate the patient. He recommends [place] catheter replaced and the patient did patient get 10 mg Decadron IV. He states that he will evaluate the patient and he will admit the patient to his service. Discussed with patient who is in agreement to be evaluated for surgery by Dr. Salazar and agrees to admission today. Administered Medications Discontinued Medications Cyclobenzaprine HCl (Cyclobenzaprine Hcl 10 Mg Tab) 10 mg PO NOW STA Stop: 12/19/21 14:06 Last Admin: 12/19/21 14:13 Dose: 10 mg Documented by: [id number] Medical Decision Making Laboratory Data Result diagrams: 12/19/21 16:14 12/19/21 16:14 Lab Results 12/19/21 12/19/21 12/19/21 Range/Units 16:14 16:14 16:14 WBC 8.84 (4.8-10.8) K/uL RBC 3.74 L (4.2-5.4) M/uL Hgb 12.0 (12.0-16.0) g/dL Hct 35.9 L (37-47) % MCV 96.0 (80-100) fL MCH 32.1 (25-34) pg MCHC 33.4 (32-36) g/dL RDW Std Deviation 47.4 H (36.4-46.3) fL RDW Coeff of [place] 13.5 (11.5-14.5) % Plt Count 300 (130-400) K/uL MPV 10.1 (7.4-10.4) fL Immature Gran % (Auto) 0.1 % Neut % (Auto) 82.0 % Lymph % (Auto) 11.3 % [place] % (Auto) 6.2 % Eos % (Auto) 0.3 % Baso % (Auto) 0.1 % Neut # (Auto) 7.24 H (1.4-6.5) K/uL Lymph # (Auto) 1.00 L (1.2-3.4) K/uL [place] # (Auto) 0.55 (0.11-0.59) K/uL Eos # (Auto) 0.03 (0-0.5) K/uL Baso # (Auto) 0.01 (0-0.2) K/uL Immature Gran # (Auto) 0.01 (0.00-0.02) K/uL PT Cancelled INR Cancelled APTT Cancelled PTT Ratio Cancelled Sodium 133 L (136-145) mmol/L Potassium 4.2 (3.5-5.1) mmol/L Chloride 97 L (98-107) mmol/L Carbon Dioxide 27 (21-32) mmol/L Anion Gap 9 (3-11) BUN 20 (6-23) mg/dl Creatinine 0.74 (0.6-1.2) mg/dl Est Cr Clr Drug Dosing 61.8 ml/min Est GFR ( Amer) 92.5 ml/min Est GFR (Non-Af Amer) 79.8 ml/min BUN/Creatinine Ratio 27.0 H (10-20) Glucose 97 (70-99(Fasting)) mg/dl Calcium 9.2 (8.5-10.1) mg/dl SARS-CoV-2, RNA, NAAT (NEGATIVE) 12/19/21 Range/Units 16:26 WBC (4.8-10.8) K/uL RBC (4.2-5.4) M/uL Hgb (12.0-16.0) g/dL Hct (37-47) % MCV (80-100) fL MCH (25-34) pg MCHC (32-36) g/dL RDW Std Deviation (36.4-46.3) fL RDW Coeff of [place] (11.5-14.5) % Plt Count (130-400) K/uL MPV (7.4-10.4) fL Immature Gran % (Auto) % Neut % (Auto) % Lymph % (Auto) % [place] % (Auto) % Eos % (Auto) % Baso % (Auto) % Neut # (Auto) (1.4-6.5) K/uL Lymph # (Auto) (1.2-3.4) K/uL [place] # (Auto) (0.11-0.59) K/uL Eos # (Auto) (0-0.5) K/uL Baso # (Auto) (0-0.2) K/uL Immature Gran # (Auto) (0.00-0.02) K/uL PT INR APTT PTT Ratio Sodium (136-145) mmol/L Potassium (3.5-5.1) mmol/L Chloride (98-107) mmol/L Carbon Dioxide (21-32) mmol/L Anion Gap (3-11) BUN (6-23) mg/dl Creatinine (0.6-1.2) mg/dl Est Cr Clr Drug Dosing ml/min Est GFR ( Amer) ml/min Est GFR (Non-Af Amer) ml/min BUN/Creatinine Ratio (10-20) Glucose (70-99(Fasting)) mg/dl Calcium (8.5-10.1) mg/dl SARS-CoV-2, RNA, NAAT NEGATIVE (NEGATIVE) Imaging Data Radiologist's Impression: Lumbar Spine MRI 12/19/21 14:05 LUMBAR SPINE MRI HISTORY: Low back pain with lower extremity numbness inability to ambulate TECHNIQUE: Multiplanar multisequence MRI of the lumbar spine was performed without the use of contrast. COMPARISON: None. FINDINGS: For the purpose of the report the L5-S1 disc space will be located on axial image 24 of . No fracture or subluxation within the lumbar spine. The visualized sacrum is intact. Paravertebral soft tissues are unremarkable. The conus terminates at the L1-L2 disc space level. There is mild disc space narrowing at L3-L4, L4-5, and L5-S1. Moderate to severe facet degenerative changes within the lumbar spine most pronounced at the L5-S1 level. L1-L2: No significant central canal or neural foraminal narrowing. L2-L3: Tiny broad-based posterior disc bulge asymmetric to the left without significant central canal narrowing. There is mild left-sided neural foraminal narrowing due to the disc bulge and facet hypertrophy. L3-L4: Small broad-based posterior disc bulge with severe ligamentum and facet hypertrophy. This results in moderate to severe central canal narrowing and mild bilateral neural foraminal narrowing. L4-L5: Broad-based posterior disc bulge with a small focal central disc protrusion. In conjunction with the severe ligamentum and facet hypertrophy this results in severe central canal narrowing. The AP diameter of the central canal is 4 mm. There is also mild bilateral neural foraminal narrowing. There is significant crowding/mass effect along the cauda equina at this level. L5-S1: Small broad-based posterior disc bulge with severe ligamentum and facet hypertrophy resulting in moderate to severe central canal and mild bilateral neural foraminal narrowing. IMPRESSION: 1. Severe central canal narrowing at L4-5 due to a broad-based posterior disc bulge, small focal central disc protrusion, and severe ligamentum/facet hypertrophy. 2. There is moderate to severe central canal narrowing at L3-L4 and L5-S1 as described above. 3. No fracture or subluxation. ACT 112: Negative or not required by law. Electronically signed by: Mark Ballard M.D. 12/19/2021 3:33 PM ECG Data Indication: other (preop) Rate (beats per minute): 76 Rhythm: normal sinus Findings: no ST depression, no ST elevation or no prolonged QT MDM Narrative Vital signs stable. MRI Shows broad posterior disc bulge with small focal central disc protrusion in conjunction with ligamentum and facet hypertrophy that results in severe canal narrowing there is significant crowding/mass-effect of the cauda equina I at L4-L5. There is also small broad-based posterior disc bulge at L3-L4 with moderate central canal narrowing. There is also L5-S1 small broad-based posterior disc bulge with ligamentum and facet hypertrophy resulting in moderate to severe stenosis. I did discuss these findings with Dr. Salazar on-call spine surgery who states he will be in to evaluate the patient. He recommends [place] catheter replaced and the patient did patient get 10 mg Decadron IV. He states that he will evaluate the patient and he will admit the patient to his service. Discussed with patient who is in agreement to be evaluated for surgery by Dr. Salazar and agrees to admission today. Impression & Plan Cauda equina syndrome Critical Care Time Critical Care Time: Yes Total Critical Care Time: 47 I have personally spent greater than 47 minutes of critical care time in the di rect management of this patient. This includes bedside care, interpretation of diagnostic studies, and testing, discussion with consultants, patient, and family members, and other required patient management activities. This 47 minutes is in excess of all separately billable procedures. Discharge Plan Visit Data Chief Complaint: Back Injury/Pain Stated Complaint: BACK PAIN, LE NUMBNESS, HARD TIME WALKING ED Provider: Jose Antonio Rader Discharge Problem: Cauda equina syndrome Patient Disposition: Being Evaluated by Surgeon Forms Stand Alone Forms: [facility] [employer] Prescriptions Prescriptions: No Action resveratrol 200 MG tablet 1 tab PO QPM RF: 0 turmeric 400 mg Capsule 400 mg PO QPM RF: 0 celecoxib [Celebrex] 200 mg Capsule 200 mg PO BID RF: 0 cyanocobalamin (vitamin B-12) [Vitamin B-12] 1,000 mcg Tablet 1,000 mcg PO 3XWK RF: 0 esomeprazole magnesium [Nexium] 40 mg Capsule,Delayed Release(Dr/Ec) 40 mg PO QPM RF: 0 loperamide-simethicone [Imodium Multi-Symptom Relief] 2-125 mg Tablet 1.5 tab PO QPM PRN (Reason: Takes in the evening if needed as a second dose) RF: 0 Restasis 0.05 % Dropperette 2 drp OPB BID RF: 0 Probiotic 3 billion cell Capsule 3,000 mmu cells PO QPM RF: 0 Vitamin I-N-G-Iodine 1 tab PO 3XWK RF: 0 amlodipine 2.5 mg Tablet 2.5 mg PO QPM RF: 0 acetaminophen [Tylenol Arthritis Pain] 650 mg Tablet Extended Release 1,300 mg PO Q12H PRN (Reason: Pain) RF: 0 Saline Nasal Mist 0.65 % Aerosol,[place] 2 spray INTRANASAL HS PRN (Reason: Nasal Dryness) RF: 0 loratadine 10 mg Tablet 10 mg PO PM PRN (Reason: seasonal allergies) RF: 0 clindamycin HCl 300 mg capsule 600 mg PO ONCE RF: 0 tramadol 50 mg Tablet 50 mg PO BID PRN (Reason: Pain) RF: 0 Referrals Referrals: Hunter Michael MD [Primary Care Provider] -
--- NOTE | 2021-12-19 15:34 | Magnetic Resonance Report ---
LUMBAR SPINE MRI HISTORY: Low back pain with lower extremity numbness inability to ambulate TECHNIQUE: Multiplanar multisequence MRI of the lumbar spine was performed without the use of contras t. COMPARISON: None. FINDINGS: For the purpose of the report the L5-S1 disc space will be located on axial image . No fracture or subluxation within the lumbar spine. The visualized sacrum is intact. Paravertebral so ft tissues are unremarkable. The conus terminates at the L1-L2 disc space level. There is mild disc s pace narrowing at L3-L4, L4-5, and L5-S1. Moderate to severe facet degenerative changes within the taz mbar spine most pronounced at the L5-S1 level. L1-L2: No significant central canal or neural foraminal narrowing. L2-L3: Tiny broad-based posterior disc bulge asymmetric to the left without significant central canal narrowing. There is mild left-sided neural foraminal narrowing due to the disc bulge and facet hyper trophy. L3-L4: Small broad-based posterior disc bulge with severe ligamentum and facet hypertrophy. This resu lts in moderate to severe central canal narrowing and mild bilateral neural foraminal narrowing. L4-L5: Broad-based posterior disc bulge with a small focal central disc protrusion. In conjunction wi th the severe ligamentum and facet hypertrophy this results in severe central canal narrowing. The AP diameter of the central canal is 4 mm. There is also mild bilateral neural foraminal narrowing. Ther e is significant crowding/mass effect along the cauda equina at this level. L5-S1: Small broad-based posterior disc bulge with severe ligamentum and facet hypertrophy resulting in moderate to severe central canal and mild bilateral neural foraminal narrowing. IMPRESSION: 1. Severe central canal narrowing at L4-5 due to a broad-based posterior disc bulge, small focal cent ral disc protrusion, and severe ligamentum/facet hypertrophy. 2. There is moderate to severe central canal narrowing at L3-L4 and L5-S1 as described above. 3. No fracture or subluxation. ACT 112: Negative or not required by law. Electronically signed by: Mark Ballard M.D. 12/19/2021 3:33 PM
[2021-12-19] MEDS ORDERED: ONDANSETRON INJ 2 MG/ML 2 ML VIAL IV STA (15:49)
[2021-12-19] MEDS ORDERED: MoRPHine SULFATE 4 MG/ML 1 ML CARP\\VIAL IV STA (15:49)
[2021-12-19 16:31] LABS: Basophils # (auto) 0.01 K/uL (0-0.2); Basophils % (auto) 0.1 %; Eosinophils # (auto) 0.03 K/uL (0-0.5); Eosinophils % (auto) 0.3 %; Hematocrit (blood only) 35.9 % (37-47); Immature Granulocytes # (auto) 0.01 K/uL (0.00-0.02); Immature Granulocytes % (auto) 0.1 %; Lymphocytes % (auto) 11.3 %; Mean Corpuscular Hemoglobin 32.1 pg (25-34); Mean Corpuscular Hgb Conc 33.4 g/dL (32-36); Mean Platelet Volume 10.1 fL (7.4-10.4); Monocytes # (auto) 0.55 K/uL (0.11-0.59); Monocytes % (auto) 6.2 %; Neutrophils # (auto) 7.24 K/uL (1.4-6.5); Platelet Count 300 K/uL (130-400); RDW Coefficient of Variation 13.5 % (11.5-14.5); RDW Standard Deviation 47.4 fL (36.4-46.3); Red Blood Count 3.74 M/uL (4.2-5.4); White Blood Count 8.84 K/uL (4.8-10.8)
[2021-12-19] MEDS ORDERED: dexAMETHasone 10 MG in SYRINGE 0 ML IV ONE (16:46)
[2021-12-19 16:54] LABS: Calcium 9.2 mg/dl (8.5-10.1); Creatinine Clr Calc Pharmacy 61.8 ml/min; Est GFR (African American) 92.5 ml/min; Est GFR (Non-African American) 79.8 ml/min; Potassium 4.2 mmol/L (3.5-5.1)
--- NOTE | 2021-12-19 17:28 | History & Physical Report ---
Date of Service December 19, 2021 Assessment & Plan (1) Lumbar disc herniation with radiculopathy: Plan: Assessment severe spinal stenosis with progressive neuro deficit and foot drop on the right. Plan at this time we will admit the patient have her medically evaluated and plan for urgent decompression and fusion. It would require attention to the L4-L5 L5-S1 levels. Risk benefits pros cons and alternatives were outlined in detail. Risk include but not limited to anesthesia blindness stroke paralysis nerve damage blood loss requiring transfusion infection requiring reoperation. History of Present Illness Chief Complaint: Back and bilateral leg pain with weakness Primary Care Provider: Hunter Michael MD This a very pleasant 76-year-old female who presents with marked decline in status with the past several days. She believes that Monday she was shoveling had the onset of worsening back pain that progressed throughout the past several days. She now notes the inability to ambulate and was taken to emergency room. Pain radiates the bilateral buttocks posterior thigh into her feet. She has a foot drop established in the right foot none on the left. She denies any loss of bowel bladder control at this time. Allergies Allergy/AdvReac Type Severity Reaction Status Date / Time Penicillins Allergy Unknown hives Verified 12/19/21 15:46 azithromycin AdvReac Mild diarrhea Verified 12/19/21 15:46 [From Zithromax Z-Aaron] codeine AdvReac Unknown nausea/vomi Verified 12/19/21 15:46 ting lansoprazole AdvReac Unknown diarrhea Verified 12/19/21 15:46 Home Medications Medication Instructions Recorded Confirmed Type Vitamin Q-J-I-Iodine 1 tab PO 3XWK 07/12/18 12/19/21 History celecoxib 200 mg capsule (Celebrex) 200 mg PO BID 07/12/18 12/19/21 History cyanocobalamin (vitamin B-12) 1,000 mcg PO 3XWK 07/12/18 12/19/21 History 1,000 mcg tablet (Vitamin B-12) cyclosporine 0.05 % eye drops in a 2 drp OPB BID 07/12/18 12/19/21 History dropperette (Restasis) esomeprazole magnesium 40 mg 40 mg PO QPM 07/12/18 12/19/21 History capsule,delayed release (Nexium) lactobacillus combination no.4 3 3,000 mmu cells PO QPM 07/12/18 12/19/21 History billion cell capsule (Probiotic) loperamide-simethicone 2 mg-125 mg 1.5 tab PO QPM PRN 07/12/18 12/19/21 History tablet (Imodium Multi-Symptom Relief) amlodipine 2.5 mg tablet 2.5 mg PO QPM 08/16/18 12/19/21 History resveratrol 1 tab PO QPM 01/06/20 12/19/21 History turmeric 400 mg capsule 400 mg PO QPM 01/06/20 12/19/21 History acetaminophen 650 mg 1,300 mg PO Q12H PRN 07/16/20 12/19/21 History tablet,extended release (Tylenol Arthritis Pain) sodium chloride 0.65 % nasal spray 2 spray INTRANASAL HS PRN 07/16/20 12/19/21 History aerosol (Saline Nasal Mist) clindamycin HCl 300 mg capsule 600 mg PO ONCE 12/19/21 12/19/21 History loratadine 10 mg tablet 10 mg PO PM PRN 12/19/21 12/19/21 History tramadol 50 mg tablet 50 mg PO BID PRN 12/19/21 12/19/21 History Past Med/Surg History Medical History Allergic rhinitis Anemia Stable per patient Cervical spinal stenosis Denies limited ROM but does have paresthesias to LEs bilaterally Chronic obstructive pulmonary disease "mild" Deviated nasal septum Dysfunction of left rotator cuff GERD (gastroesophageal reflux disease) Well controlled and stable Hip bursitis, left History of basal cell carcinoma History of hypothyroidism Has been off med for three months per PCP instructions- was only on Synthyroid 25mcg- feels well Hyperlipidemia -BORDERLINE-NO MEDS Hypertension Irritable bowel disease Osteoarthritis Personal history of peptic ulcer disease Temporomandibular joint disorder CLICKS DOES NOT LOCK Surgical History History of anesthesia reaction "shivering" History of basal cell carcinoma (BCC) excision History of bilateral tubal ligation History of colonoscopy History of dilatation and curettage X 3 History of esophagogastroduodenoscopy (EGD) History of right knee joint replacement Right TKA: 08/16/18: SAB x1 at L2/3 + PNB at [facility] History of tonsillectomy History of tooth extraction Hx of hemorrhoidectomy S/P sclerotherapy of varicose veins Status post right knee replacement Family History Father Family history of diabetes mellitus Grandmother Family history of diabetes mellitus Family/Other No problems noted. Grandfather Family history- stomach cancer Other No family history of adverse response to anesthesia Social History Smoking Status: Never smoker Second Hand Exposure: Yes (ON OCC-SOCIAL EVENTS); Hx Alcohol Use: Yes Alcohol type: wine Hx Substance Use: No Preferred Language: Romanian Communication Ability: Effective Visual Impairment: No Limitations Gold Prospector Required: No Beliefs That Will Affect Care: None marital status: Current Living Situation: Spouse Feels Safe at Home: Yes Assistive Devices: Glasses and Walker Physical Exam Physical Exam: On exam she is most comfortable lying supine. She has significant tension signs straight leg raising bilaterally right worse than left. There is a 3-/5 right dorsiflexion extensor hallucis longus compared to 5 5 on the left. Plantar flexion appears to be symmetric and intact. Quadriceps of breakaway weakness. Sensory is somewhat diminished to cold and light touch bilateral extremities. Results & Data ([facility]) Vital Signs (Past 12 Hours) Vital Signs Temp Pulse Pulse Resp BP Pulse Ox 12/19/21 16:12 81 16 191/114 H 99 12/19/21 13:59 103 H 16 172/91 H 93 12/19/21 13:47 36.5 C 82 18 100
[2021-12-19 17:50] LABS: Partial Thromboplastin Time 27.3 Seconds (21.0-31.0); Prothrombin Time 10.1 Seconds (9.0-12.0)
[2021-12-19] MEDS ORDERED: ONDANSETRON 4 MG OD TAB PO PRN (18:26)
[2021-12-19] MEDS ORDERED: SODIUM CHLORIDE 0.65% NA SOLN 45 ML (OCEAN) PRN (18:26)
[2021-12-19] MEDS ORDERED: HYDROmorphone INJ 0.5 MG/0.5 ML SYR IV PRN (18:26)
[2021-12-19] MEDS ORDERED: HYDROmorphone INJ 1 MG/ML SYRINGE IV PRN (18:26)
[2021-12-19] MEDS ORDERED: hydrOXYzine HCl 25 MG TAB PO PRN (18:26)
[2021-12-19] MEDS ORDERED: NALOXONE HCL 0.4 MG/1 ML VIAL/CARP IV PRN (18:26)
[2021-12-19] MEDS ORDERED: oxyCODONE HCL IR 5 MG TAB (IMMEDIATE RELEASE) PO PRN (18:26)
[2021-12-19] MEDS ORDERED: ACETAMINOPHEN 1,000 MG/100 ML VIAL IV PRN (18:26)
[2021-12-19] MEDS ORDERED: ACETAMINOPHEN 500 MG TAB PO PRN (18:26)
[2021-12-19] MEDS ORDERED: LORazepam 2 MG/1 ML VIAL IV PRN (18:26)
[2021-12-19] MEDS ORDERED: traMADol HCL 50 MG TABLET PO PRN (18:26)
[2021-12-19] MEDS ORDERED: LORazepam 0.5 MG TAB PO PRN (18:26)
[2021-12-19] MEDS ORDERED: LORATADINE 10 MG TAB PO PRN (18:26)
[2021-12-19] MEDS ORDERED: PROMETHAZINE HCL 12.5 MG in SODIUM CHLORIDE 0.9% 50 ML IV PRN (18:26)
[2021-12-19] MEDS ORDERED: ONDANSETRON INJ 2 MG/ML 2 ML VIAL IV PRN (18:26)
[2021-12-19] MEDS ORDERED: METOCLOPRAMIDE HCL INJ 5 MG/ML 2 ML VIAL IV PRN (18:26)
[2021-12-19] MEDS: SODIUM CHLORIDE 0.9% 1000ML 1,000 ML IV SCH (19:13)
--- NOTE | 2021-12-19 19:52 | Hospitalist Consultation ---
Date of Consultation December 19, 2021 Assessment & Plan (1) Lumbar disc herniation with radiculopathy: Raegan Gallego is a 76yo female with PMHx significant for HTN (on Amlodipine), borderline JONATAN, GERD and constipation who was admitted to [facility] on 12/19 for progressively worsening radiculopathy due to L4-L5 disc herniation. Ortho on board as primary team, with plans for urgent decompression and fusion. We were consulted for med management. Lumbar Disc Herniation with Radiculopathy Ortho planning for urgent decompression/fusion as stated above. Patient's revised cardiac index score is 0, with 3.9% 30-day risk of , [place] or cardiac arrest. Chronic medical conditions are stable and well-controlled. Agree with plan for urgent surgery. Patient is medically optimized and may proceed to surgery without additional testing. - s/p Decadron x1 - agree with graduated pain management regimen per Ortho: Tylenol/Tramadol/Oxycodone/Dilaudid - agree with PRNs for anxiety and nausea - continue pre-operative Clindamycin for ppx Hyponatremia Na 133, patient asymptomatic, likely 2/2 mild dehydration. - agree with IVFs - continue with NSS @75cc/hr - repeat BMP in AM HTN Currently 186/98 but asymptomatic, and due for upcoming daily med. Usually <150/90 at home, but higher in last several days likely 2/2 pain. - continue Amlodipine 2.5mg PO daily - continue pain regimen as stated above GERD - Protonix per hospital formulary JONATAN Borderline per home sleep study. Does not use CPAP. - no management necessary at this time FEN/GI: NPO at midnight for surgery, NSS @75cc/hr DVT Prophylaxis: SCDs/TEDs, chemoppx contraindicated due to upcoming surgery Code Status: full code Disposition: med/surg, will defer timing of post-op PT/OT to primary team Thank you for this consult. Please refer to Dr. Fisher's addendum for further documentation. We will continue to follow along with you. (2) Hypertension: (3) Sleep apnea: (4) GERD (gastroesophageal reflux disease): Supervising Physician Co-Signing Physician Notes Patient seen and examined, chart reviewed, I agree with the note of Dr. Kwon as above. In brief, patient is a pleasant 76yo female with history of HT, HLP, GERD and mild JONATAN presenting with worsening back pain with radicular symptoms. Pain and numbness from L4-L5 down posterior thighs, calfs and into feet. Some reported weakness as well as right foot drop. She is to have L4-L5 decompression and fusion performed by Dr. Salazar in AM. Patient with stable medical issues. Has reported history of "problems with anesthesia" - upon further questioning - patient gets shaky and feels cold with anesthesia but does not have any symptoms that require interventio On exam she is afebrile, hypertensive otherwise stable NAD resting comfortably +S1/S2,regular Lungs CTA Abd sft, NT/ND Ext - No edema Mild LE weakess 4/5 on dorsiflexion Labs and images reviewed Assessment/Plan Patient may proceed to surgery in AM with no additional testing Will monitor BP and Na post-operatively Remainder as above History of Present Illness Reason for Consultation: medical management Requesting Physician: Dr. Salazar Attending Physician: Spenser Salazar, DO History of Present Illness Raegan Gallego is a 76yo female with PMHx significant for HTN (on Amlodipine), borderline JONATAN, GERD and constipation who was admitted to [facility] on 12/19 for progressively worsening radiculopathy due to L4-L5 disc herniation. Patient had presented with progressively worsening low back pain that radiates down BLEs to feet, with associated lower extremity numbness and foot drop on the right lasting several days. Denies bowel/urine incontinence. Reports that BP is usua lly <150/90 when measuring at home, but is higher in last several days (she has been in severe pain/discomfort). Denies headache/blurry vision/CP/SOB/LE edema. Was diagnosed with borderline JONATAN via home sleep study and does not use CPAP. Laboratory evaluation was significant for mild hyponatremia 133. MRI L-spine showed severe central canal stenosis at L4-L5 due to posterior disc herniation, in addition to moderate-severe central canal stenosis at L3-L4 and L5-S1. Patient was given Flexeril 10mg PO x1, Zofran x1, and both Morphine 4mg IV x1 and Decadron 10mg IV x1 for radicular pain. Orthopedic surgery was admitted this patient and are planning for urgent decompression and fusion, with attention to L4-L5 and L5-S1 levels. We were consulted for med management. Allergies Allergy/AdvReac Type Severity Reaction Status Date / Time Penicillins Allergy Unknown hives Verified 12/19/21 15:46 azithromycin AdvReac Mild diarrhea Verified 12/19/21 15:46 [From Zithromax Z-Aaron] codeine AdvReac Unknown nausea/vomi Verified 12/19/21 15:46 ting lansoprazole AdvReac Unknown diarrhea Verified 12/19/21 15:46 Home Medications Medication Instructions Recorded Confirmed Type Vitamin I-K-C-Iodine 1 tab PO 3XWK 07/12/18 12/19/21 History celecoxib 200 mg capsule (Celebrex) 200 mg PO BID 07/12/18 12/19/21 History cyanocobalamin (vitamin B-12) 1,000 mcg PO 3XWK 07/12/18 12/19/21 History 1,000 mcg tablet (Vitamin B-12) cyclosporine 0.05 % eye drops in a 2 drp OPB BID 07/12/18 12/19/21 History dropperette (Restasis) esomeprazole magnesium 40 mg 40 mg PO QPM 07/12/18 12/19/21 History capsule,delayed release (Nexium) lactobacillus combination no.4 3 3,000 mmu cells PO QPM 07/12/18 12/19/21 History billion cell capsule (Probiotic) loperamide-simethicone 2 mg-125 mg 1.5 tab PO QPM PRN 07/12/18 12/19/21 History tablet (Imodium Multi-Symptom Relief) amlodipine 2.5 mg tablet 2.5 mg PO QPM 08/16/18 12/19/21 History resveratrol 1 tab PO QPM 01/06/20 12/19/21 History turmeric 400 mg capsule 400 mg PO QPM 01/06/20 12/19/21 History acetaminophen 650 mg 1,300 mg PO Q12H PRN 07/16/20 12/19/21 History tablet,extended release (Tylenol Arthritis Pain) sodium chloride 0.65 % nasal spray 2 spray INTRANASAL HS PRN 07/16/20 12/19/21 History aerosol (Saline Nasal Mist) clindamycin HCl 300 mg capsule 600 mg PO ONCE 12/19/21 12/19/21 History loratadine 10 mg tablet 10 mg PO PM PRN 12/19/21 12/19/21 History tramadol 50 mg tablet 50 mg PO BID PRN 12/19/21 12/19/21 History Patient History Medical History (Updated 12/19/21 @ 19:41 by Sonido Kwon MD) Allergic rhinitis Anemia Stable per patient Cervical spinal stenosis Denies limited ROM but does have paresthesias to LEs bilaterally Chronic obstructive pulmonary disease "mild" Deviated nasal septum Dysfunction of left rotator cuff GERD (gastroesophageal reflux disease) Well controlled and stable Hip bursitis, left History of basal cell carcinoma History of hypothyroidism Has been off med for three months per PCP instructions- was only on Synthyroid 25mcg- feels well Hyperlipidemia -BORDERLINE-NO MEDS Hypertension Irritable bowel disease Osteoarthritis Personal history of peptic ulcer disease Temporomandibular joint disorder CLICKS DOES NOT LOCK Surgical History History of anesthesia reaction "shivering" History of basal cell carcinoma (BCC) excision History of bilateral tubal ligation History of colonoscopy History of dilatation and curettage X 3 History of esophagogastroduodenoscopy (EGD) History of right knee joint replacement Right TKA: 08/16/18: SAB x1 at L2/3 + PNB at [facility] History of tonsillectomy History of tooth extraction Hx of hemorrhoidectomy S/P sclerotherapy of varicose veins Status post right knee replacement Family History Father Family history of diabetes mellitus Grandmother Family history of diabetes mellitus Family/Other No problems noted. Grandfather Family history- stomach cancer Other No family history of adverse response to anesthesia Social History Smoking Status: Never smoker Second Hand Exposure: Yes (ON OCC-SOCIAL EVENTS); Hx Alcohol Use: No Hx Substance Use: No Preferred Language: Urdu Communication Ability: Effective Visual Impairment: No Limitations Meat Cutting Teacher Required: No Beliefs That Will Affect Care: None marital status: Current Living Situation: Spouse Feels Safe at Home: Yes Safety Concerns: Feels Safe At This Time Assistive Devices: Glasses Review of Systems Review of Systems: All systems reviewed & are unremarkable except as noted in HPI & below Physical Exam Physical Exam: General: A&Ox3. NAD. Cooperative. HEENT: Atraumatic, normocephalic. Pulm: CTAB A&P. -wheezes, -rales, -rhonchi. Symmetrical chest rise. No increase work of breathing. No respiratory distress. Cardiac: RRR, -mrg. Radial pulses intact and symmetrical. Abdominal: soft, non-tender, non-distended, BS x 4 Back: severe TTP of spine at L4-L5 level Neuro: foot drop on right, significantly decreased sensation in thighs/legs/feet (R>L), 1+ patellar/achilles reflexes bilaterally, 5/5 strength in hip/leg flexion/extension, 4/5 strength in dorsiflexion and plantar flexion Results & Data Results & Data ([facility]) Vital Signs (Past 12 Hours) Vital Signs Temp Pulse Pulse Pulse Resp BP Pulse Ox 12/19/21 18:27 36.5 C 75 16 186/98 H 97 12/19/21 16:12 81 16 191/114 H 99 12/19/21 13:59 103 H 16 172/91 H 93 12/19/21 13:47 36.5 C 82 18 100 Resident Activity Tracking Resident Involvement: Resident Care Provided Care Provided: Adult Hospital Medicine
[2021-12-19] MEDS: PANTOprazole 40 MG TAB PO SCH (20:08)
[2021-12-19] MEDS: amLODIPine BESYLATE 5 MG TAB PO SCH (20:08)
[2021-12-19] MEDS: ADVANCED PROBIOTIC 1250 MG CAPSULE PO SCH (20:09)
--- NOTE | 2021-12-19 20:55 | Billing Data ---
Date of Service December 19, 2021 Coding Level of Care Code 09069 Inpt Consult Level 3
[2021-12-20] MEDS ORDERED: *RESTASIS*ORDER AWAITING ACTION SCH
[2021-12-20] MEDS ORDERED: CLINDAMYCIN 600 MG in DEXTROSE 5% 50 ML IV SCH (06:00)
[2021-12-20] MEDS ORDERED: CLINDAMYCIN 600 MG/54 ML BAG IV SCH (06:00)
[2021-12-20 06:45] LABS: Hematocrit (blood only) 34.4 % (37-47); Hemoglobin 11.6 g/dL (12.0-16.0); Immature Granulocytes # (auto) 0.01 K/uL (0.00-0.02); Immature Granulocytes % (auto) 0.2 %; Lymphocytes # (auto) 0.59 K/uL (1.2-3.4); Lymphocytes % (auto) 10.5 %; Mean Corpuscular Hemoglobin 32.2 pg (25-34); Mean Corpuscular Hgb Conc 33.7 g/dL (32-36); Mean Corpuscular Volume 95.6 fL (80-100); Mean Platelet Volume 10.2 fL (7.4-10.4); Monocytes % (auto) 1.8 %; Neutrophils % (auto) 87.5 %; Platelet Count 305 K/uL (130-400); RDW Coefficient of Variation 13.7 % (11.5-14.5)
--- NOTE | 2021-12-20 07:01 | Hospitalist Progress Note ---
Date of Service December 20, 2021 Assessment & Plan (1) Lumbar disc herniation with radiculopathy: Plan: Raegan Gallego is a 76yo female with PMHx significant for HTN (on Amlodipine), borderline JONATAN, GERD and constipation who was admitted to [facility] on 12/19 for progressively worsening radiculopathy due to L4-L5 disc herniation. Ortho on board as primary team, with plans for urgent decompression and fusion. We were consulted for med management. Lumbar Disc Herniation with Radiculopathy Underwent urgent decompression/fusion with Ortho today as stated above. Patient's revised cardiac index score is 0, with 3.9% 30-day risk of , [place] or cardiac arrest. Chronic medical conditions are stable and well-controlled. Agree with plan for urgent surgery. - s/p Decadron x1 - agree with graduated pain management regiment per Ortho: Tylenol/Tra madol/Oxycodone/Dilaudid - agree with PRNs for anxiety and nausea - continue pre-operative Clindamycin for ppx Hyponatremia - resolved Na 133, patient asymptomatic, likely 2/2 mild dehydration. - Today at 137 after receiving IVF HTN Reasonably well controlled today -- somwhat elevated into 150s/90s but asymptomatic and would make sense to have some elevation with her pain - continue Amlodipine 2.5mg PO daily - continue pain regimen as stated above GERD - Protonix per hospital formulary JONATAN Borderline per home sleep study. Does not use CPAP. - no management necessary at this time FEN/GI: NPO prior to surgery then recommend heart healthy DVT Prophylaxis: SCDs/TEDs, chemoppx contraindicated due to upcoming surgery Code Status: full code Disposition: med/surg, will defer timing of post-op PT/OT to primary team Thank you for this consult. Please refer to Dr. Kc's addendum for further documentation. We will continue to follow along with you. (2) Hypertension: (3) Sleep apnea: (4) GERD (gastroesophageal reflux disease): Admission and Anticipated Discharge Date Admission Date: December 19, 2021 Supervising Physician Co-Signing Physician Notes I personally examined the patient and verified all neff points of history and exam, discussed case, and agree with decision making with Dr Hudson. Feeling fairly well postop. Able to move the legwas not able to before. No other acute complaints. Leg is still a little bit diminished in sensation Vitals noted, in general she is awake and alert pleasant no distress. HEENT normocephalic atraumatic mucous membranes moist. Breathing unlabored no accessory muscle use good effort. No calf tenderness. Skin without rashes, pallor, icterus. Lumbar disc herniation/lumbar radiculopathynow improved postop. Per surgery. PT/OT eval and treat Hypertensionblood pressures quite reasonable given the situation. Continue/follow. DVT prophylaxisSCDs Otherwise as above Subjective No acute events overnight. Seen at bedside this AM. Patient doing overall well with pain that is reasonably controlled at this time. She denies f/c,n/v, CP, palp, SOB, abd pain, neuro issues, PITTS, dizziness. Review of Systems Review of Systems: per subjective Physical Exam Physical Exam: General: A&Ox3. NAD. Cooperative. HEENT: Atraumatic, normocephalic. Pulm: Symmetrical chest rise. No increase work of breathing. No respiratory distress. Cardiac: RRR. Radial pulses intact and symmetrical. Back: severe TTP of spine at L4-L5 level Results & Data Results & Data ([facility]) Vital Signs (Past 12 Hours) Vital Signs Temp Pulse Resp BP Pulse Ox 12/19/21 21:58 37.3 C 70 16 136/77 97 Resident Activity Tracking Resident Involvement: Resident Care Provided Care Provided: Adult Hospital Medicine
--- NOTE | 2021-12-20 07:39 | History & Physical Bridge Note ---
Date of Service December 20, 2021 History & Physical Bridge Note I have examined the patient, reviewed the History & Physical and in the interval since the performance of the History & Physical I have noted the following changes of clinical significance: She continues to note severe pain with progressive weakness in the right leg. In light of her neurologic deficit I am recommending emergent decompression and fusion hopefully halt nerve damage and with time provide improvement to her strength and ability to ambulate.
[2021-12-20 07:40] LABS: BUN Creatinine Ratio 21.3 (10-20); Calcium 8.3 mg/dl (8.5-10.1); Creatinine Clr Calc Pharmacy 73.3 ml/min; Est GFR (African American) 103.5 ml/min; Est GFR (Non-African American) 89.3 ml/min
[2021-12-20] MEDS: SODIUM CHLORIDE 0.9% 1000ML 1,000 ML IV SCH ×2 (08:05→15:01)
--- NOTE | 2021-12-20 09:38 | Anesthesiology Consultation ---
Date of Service December 20, 2021 Assessment & Plan (1) Encounter for pre-operative examination: Chart Review Chart Review: Acceptable Risk for Surgery and Patient NOT seen in Pre Admission Testing Consults Requested none History Surgery Operation Date: 12/20/21 07:50 Proposed Procedures p L4-S1 Decompression and Fusion - Spenser Salazar DO Height/Weight Height: 5 ft 1 in Weight: 71.668 kg Allergies Allergy/AdvReac Type Severity Reaction Status Date / Time Penicillins Allergy Unknown hives Verified 12/19/21 15:46 azithromycin AdvReac Mild diarrhea Verified 12/19/21 15:46 [From Zithromax Z-Aaron] codeine AdvReac Unknown nausea/vomi Verified 12/19/21 15:46 ting lansoprazole AdvReac Unknown diarrhea Verified 12/19/21 15:46 Medications Home Medications Medication Instructions Recorded Confirmed Last Taken Vitamin Q-Z-I-Iodine 1 tab PO 3XWK 07/12/18 12/19/21 12/18/21 celecoxib 200 mg capsule (Celebrex) 200 mg PO BID 07/12/18 12/19/21 12/18/21 cyanocobalamin (vitamin B-12) 1,000 mcg PO 3XWK 07/12/18 12/19/21 12/17/21 1,000 mcg tablet (Vitamin B-12) cyclosporine 0.05 % eye drops in a 2 drp OPB BID 07/12/18 12/19/21 12/18/21 dropperette (Restasis) esomeprazole magnesium 40 mg 40 mg PO QPM 07/12/18 12/19/21 12/18/21 capsule,delayed release (Nexium) lactobacillus combination no.4 3 3,000 mmu cells PO QPM 07/12/18 12/19/21 12/18/21 billion cell capsule (Probiotic) loperamide-simethicone 2 mg-125 mg 1.5 tab PO QPM PRN 07/12/18 12/19/21 12/18/21 tablet (Imodium Multi-Symptom Relief) amlodipine 2.5 mg tablet 2.5 mg PO QPM 08/16/18 12/19/21 12/18/21 resveratrol 1 tab PO QPM 01/06/20 12/19/21 12/18/21 turmeric 400 mg capsule 400 mg PO QPM 01/06/20 12/19/21 12/18/21 acetaminophen 650 mg 1,300 mg PO Q12H PRN 07/16/20 12/19/21 12/19/21 09:00 tablet,extended release (Tylenol 1300 mg Arthritis Pain) sodium chloride 0.65 % nasal spray 2 spray INTRANASAL HS PRN 07/16/20 12/19/21 12/18/21 aerosol (Saline Nasal Mist) clindamycin HCl 300 mg capsule 600 mg PO ONCE 12/19/21 12/19/21 Unknown loratadine 10 mg tablet 10 mg PO PM PRN 12/19/21 12/19/21 12/18/21 tramadol 50 mg tablet 50 mg PO BID PRN 12/19/21 12/19/21 12/19/21 09:00 50 mg Active Medications Generic Name Dose Route Start Last Admin Trade Name Freq PRN Reason Stop Dose Admin Acetaminophen 1,000 mg 12/19/21 18:26 12/20/21 08:04 Acetaminophen 500 Mg Tab PO 01/18/22 18:25 1,000 mg Q8H PRN Administration MILD Pain Scale 1,2,3 & Pre PT Amlodipine Besylate 2.5 mg 12/19/21 21:00 12/19/21 20:08 Amlodipine Besylate 5 Mg Tab PO 01/18/22 20:59 2.5 mg QPM FRANCISCO Administration Sodium Chloride 1,000 mls @ 75 mls/hr 12/19/21 19:00 12/20/21 08:05 Nss 1000ml IV 01/18/22 18:59 75 mls/hr .[id number] FRANCISCO Administration Lactobacillus Acidophilus 2 cap 12/19/21 21:00 12/19/21 20:09 Advanced Probiotic 1250 Mg Capsule PO 01/18/22 20:59 2 cap QPM FRANCISCO Administration Pantoprazole Sodium 40 mg 12/19/21 21:00 12/19/21 20:08 Pantoprazole 40 Mg Tab PO 01/18/22 20:59 40 mg QPM FRANCISCO Administration Protocol Tramadol HCl 50 - 100 mg 12/19/21 18:26 12/19/21 19:13 Tramadol Hcl 50 Mg Tablet PO 01/18/22 18:25 50 mg Q4H PRN Administration Moderate-Severe pain & Pre PT NPO Date Last Intake of Fluids: 12/20/21 Time Last Intake of Fluids: 00:00 Date Last Intake of Solids: 12/19/21 Time Last Intake of Solids: 21:00 Past Medical History Medical History Allergic rhinitis Anemia Stable per patient Cervical spinal stenosis Denies limited ROM but does have paresthesias to LEs bilaterally Chronic obstructive pulmonary disease "mild" Deviated nasal septum Dysfunction of left rotator cuff GERD (gastroesophageal reflux disease) Well controlled and stable Hip bursitis, left History of basal cell carcinoma History of hypothyroidism Has been off med for three months per PCP instructions- was only on Synthyroid 25mcg- feels well Hyperlipidemia -BORDERLINE-NO MEDS Hypertension Irritable bowel disease Osteoarthritis Personal history of peptic ulcer disease Temporomandibular joint disorder CLICKS DOES NOT LOCK Past Family History Family History Father Family history of diabetes mellitus Grandmother Family history of diabetes mellitus Family/Other No problems noted. Grandfather Family history- stomach cancer Other No family history of adverse response to anesthesia Past Surgical History Surgical History History of anesthesia reaction "shivering" History of basal cell carcinoma (BCC) excision History of bilateral tubal ligation History of colonoscopy History of dilatation and curettage X 3 History of esophagogastroduodenoscopy (EGD) History of right knee joint replacement Right TKA: 08/16/18: SAB x1 at L2/3 + PNB at [facility] History of tonsillectomy History of tooth extraction Hx of hemorrhoidectomy S/P sclerotherapy of varicose veins Status post right knee replacement Social History Smoking Status: Never smoker tobacco type: cigarettes Hx Alcohol Use: No Alcohol type: wine alcohol intake frequency: a few times a week Hx Substance Use: No substance use type: does not use Physical Exam Vital Signs Last Vital Signs Temp 98.6 F 12/20/21 07:04 Pulse 81 12/20/21 07:04 Resp 16 12/20/21 07:04 BP 137/79 12/20/21 07:04 Pulse Ox 98 12/20/21 07:04 Testing Laboratory Results 12/20/21 06:06 12/20/21 06:06 PT 10.1 Seconds (9.0-12.0) 12/19/21 17:28 INR 1.0 (0.9-1.1) 12/19/21 17:28 APTT 27.3 Seconds (21.0-31.0) 12/19/21 17:28 Electrocardiogram Date: 12/19/21 Findings: + NSR @
[2021-12-20] MEDS ORDERED: LIDOCAINE 2% 2 ML VIAL/AMP(20MG/ML) INFIL ONE (10:05)
[2021-12-20] MEDS ORDERED: PROPOFOL IV EMULSION 10 MG/ML 20 ML VIAL IV ONE (10:05)
[2021-12-20] MEDS ORDERED: ROCURONIUM BROMIDE 10 MG/ML 5 ML VIAL IV ONE (10:05)
[2021-12-20] MEDS ORDERED: fentaNYL citrate 100 MCG/2 ML VIAL ONE (10:06)
[2021-12-20] MEDS ORDERED: MIDAZOLAM HCL 1 MG/ML 2ML VIAL ONE (10:06)
[2021-12-20] MEDS ORDERED: ONDANSETRON INJ 2 MG/ML 2 ML VIAL IV PRN ×2 (10:14→14:24)
[2021-12-20] MEDS ORDERED: ATROPINE SULFATE 0.1 MG/ML 10ML SYR IV PRN (10:14)
[2021-12-20] MEDS ORDERED: ePHEDrine sulfate 50 MG/ML AMP IV PRN (10:14)
[2021-12-20] MEDS ORDERED: ceFAZolin 330 MG/ML 1 GM VIAL ONE (10:44)
[2021-12-20] MEDS ORDERED: BUPIVACAINE/EPINEPHRINE 0.25% 1:200,000 30 ML VIAL ONE (10:44)
[2021-12-20] MEDS ORDERED: HYDROmorphone INJ 2 MG/ML SYR/VIAL ONE (11:30)
[2021-12-20] MEDS ORDERED: DEXAMETHASONE SOD INJ 4 MG/ML VIAL ONE (11:53)
[2021-12-20] MEDS ORDERED: GLYCOPYRROLATE 0.2 MG/ML VIAL ONE (11:53)
[2021-12-20] MEDS ORDERED: ONDANSETRON INJ 2 MG/ML 2 ML VIAL ONE ×2 (11:53→11:55)
[2021-12-20] MEDS ORDERED: FLOSEAL HEMOSTATIC MATRIX 10ML TOP ONE (12:41)
--- NOTE | 2021-12-20 12:49 | Electrocardiogram Report ---
Test Reason : Blood Pressure : / mmHG Vent. Rate : 076 BPM Atrial Rate : 076 BPM P-R Int : 134 ms QRS Dur : 088 ms QT Int : 410 ms P-R-T Axes : 003 -14 019 degrees QTc Int : 461 ms Poor data quality, interpretation may be adversely affected Sinus rhythm Normal ECG When compared with ECG of 06-JAN-2020 12:22, No significant change Confirmed by Slade Bailon ([id number]) on 12/20/2021 12:49:11 PM Referred By: REFERRED SELF Confirmed By:Slade Bailon
--- NOTE | 2021-12-20 13:02 | Operative Report ---
Post Operative Report Pre & Post Diagnosis Operation Date: 12/20/21 07:50 Pre-Op Diagnosis: Spinal stenosis with leg weakness Post-Op Diagnosis: Spinal stenosis with leg weakness I identified the patient and participated in the time-out.: Yes Procedure Operation Date: 12/20/21 07:50 Actual Procedures #1 lumbar decompression with bilateral medial facetectomies and foraminotomies L3-L4, L4-5 and L5-S1. #2 posterior spinal fusion L4-5 L5-S1. #3 placement posterior instrumentation L4-L5 L5-S1. #4 interbody fusion L4-5 L5-S1. #5 placement of titanium cages 13 x 22 mm at L4-L5 and 12 x 22 mm at L5-S1. #6 placement locally harvested morselized autograft in the posterior gutters. #7 placement of his collagen sponge and master graft in the posterior gutters and I factor interbody space. Surgeon Spenser Salazar, Senior Librarian Eusebia Barlow Estimated Blood Loss 200 Findings Consistent with Post-Op Diagnosis Specimens None Indications This is a 76-year-old female presents with marked decline in status with severe pain and weakness affecting right lower extremity and acute basis and subsequently is here for emergent decompression fusion. Description of Procedure Patient met with identified informed consent obtained. Patient then taken to the operative suite underwent a patient placed in prone position Morales Neo frame. All bony prominences well-padded eyes inspected to ensure no external pressure placed upon the. This point lumbar spine was prepped and draped in sterile fashion. Sharp dissection with the assistance of Bovie cautery was performed down to and exposing the lamina and transverse processes of L4-L5 and sacral ala bilaterally. From caudal to cephalad fashion complete laminectomy L5 L4 and partial laminectomy of L3 was performed including bilateral medial facetectomies and foraminotomies addressing severe spinal stenosis. Pedicle screws were then placed in L4 and L5 and S1 levels bilaterally with assistance of fluoroscopy and proper sized elias placed. Bilateral transforaminal approach on the right pleat discectomy of L5-S1 was performed endplates curetted to subcortical being bone and a 12 x 22 mm titanium cage filled I factor tapped in position. I then proceeded to L4-L5 and again by way of a transforaminal portion right complete discectomy performed endplates curetted to subcortically bone and a 13 x 22 mm 18 cage filled with I factor tapped in position. The rods then compressed locked in final position bilaterally. The transverse processes of L for L5 and S1 levels burred to subcortical bleeding bone. Infuse collagen sponge master graft lobe autograft was placed in posterior gutters. 15 round MERYL drain inserted. The incision was then closed with 1 Vicryl the fascia 2-0 Vicryl subcutaneously and 4 Monocryl for final skin closure. Steri-Strip sterile dressings placed. Patient will continue PACU stable condition. Please note spinal cord monitoring was utilized at the procedure no changes noted. Lastly Eusebia Barlow was present at the entire surgery and while the patient positioning complex portions of the surgery and final skin closure. I attest to the content of the Intraoperative Record and any orders documented therein. Any exceptions are noted below.
--- NOTE | 2021-12-20 13:08 | Fluoroscopy Report ---
FL lumbar spine 2-3V CLINICAL HISTORY: L4-S1 D/F/I COMPARISON STUDY: Lumbar spine MRI December 19, 2021. FLUOROSCOPY TIME: 21 seconds. FLUOROSCOPIC IMAGES: 2 FINDINGS: Fluoroscopy was provided during L4-L5 and L5-S1 discectomies with posterior decompression a nd bilateral pedicle screw fusion from L4 through S1. Interconnecting rods are present. Hardware is i ntact. No unexpected radiopaque foreign bodies. IMPRESSION: Fluoroscopy provided during L4-S1 discectomies, posterior decompression and bilateral pe dicle screw fusion. ACT 112: Negative or not required by law. Electronically signed by: Bhavesh Martel M.D. 12/20/2021 1:07 PM
[2021-12-20] MEDS: fentaNYL citrate 100 MCG/2 ML VIAL IV PRN ×4 (13:42→13:56)
--- NOTE | 2021-12-20 14:07 | Anesthesiology Progress Note ---
Date of Service December 20, 2021 Anesthesia Post Procedure Vital Signs Vital Signs: Temp Pulse Pulse Resp BP BP Pulse Ox 12/20/21 14:00 97.7 F 57 L 16 114/69 96 12/20/21 13:50 61 8 L 122/74 100 12/20/21 13:40 61 14 125/72 100 12/20/21 13:30 62 10 L 131/76 100 12/20/21 13:22 97.2 F L 69 16 137/75 100 12/20/21 09:49 98.4 F 80 18 156/95 H 97 12/20/21 07:04 98.6 F 81 16 137/79 98 12/19/21 21:58 99.1 F 70 16 136/77 97 12/19/21 18:27 97.7 F 75 16 186/98 H 97 12/19/21 16:12 81 16 191/114 H 99 Pain Intensity Bilateral Back: Pain Intensity: 3 Back: Pain Intensity: 3 Transfer of Care Handoff Completed per policy Notes Mental Status: alert / awake / arousable and participated in evaluation Patient Amnestic to Procedure: Yes Nausea / Vomiting: adequately controlled Pain: adequately controlled Airway Patency, RR, SpO2: stable & adequate BP & HR: stable & adequate Hydration State: stable & adequate Anesthetic Complications: no major complications apparent and Pt Satisfied with anesthetic care
[2021-12-20] MEDS ORDERED: METOCLOPRAMIDE HCL INJ 5 MG/ML 2 ML VIAL IV PRN (14:24)
[2021-12-20] MEDS ORDERED: DO NOT ADMINISTER PNEUMOCOCCAL VACCINE PRN (14:24)
[2021-12-20] MEDS ORDERED: diphenhydrAMINE Capsule 25 MG CAP PO PRN (14:24)
[2021-12-20] MEDS ORDERED: ACETAMINOPHEN 1,000 MG/100 ML VIAL IV PRN (14:24)
[2021-12-20] MEDS ORDERED: HYDROmorphone INJ 0.5 MG/0.5 ML SYR IV PRN (14:24)
[2021-12-20] MEDS ORDERED: PROMETHAZINE HCL 12.5 MG in SODIUM CHLORIDE 0.9% 50 ML IV PRN (14:24)
[2021-12-20] MEDS ORDERED: NALOXONE HCL 0.4 MG/1 ML VIAL/CARP IV PRN (14:24)
[2021-12-20] MEDS ORDERED: ALUMINUM/MAGNESIUM SUSP 30 ML UDC PO PRN (14:24)
[2021-12-20] MEDS ORDERED: LORazepam 2 MG/1 ML VIAL IV PRN (14:24)
[2021-12-20] MEDS ORDERED: ONDANSETRON 4 MG OD TAB PO PRN (14:24)
[2021-12-20] MEDS ORDERED: DO NOT ADMINISTER FLU VACCINE PRN (14:24)
[2021-12-20] MEDS ORDERED: hydrOXYzine HCl 25 MG TAB PO PRN (14:24)
[2021-12-20] MEDS ORDERED: SOD PHOSPHATE/SOD BIPHOSPHATE ENEMA 132 ML BTL PR PRN (14:24)
[2021-12-20] MEDS ORDERED: LORazepam 0.5 MG TAB PO PRN (14:24)
[2021-12-20] MEDS ORDERED: MAGNESIUM HYDROXIDE SUSP 30 ML UDC PO PRN (14:24)
[2021-12-20] MEDS ORDERED: FAMOTIDINE 20 MG TAB PO PRN (14:24)
[2021-12-20] MEDS ORDERED: bisacodyL 10 MG SUPP PR PRN (14:24)
[2021-12-20] MEDS: HYDROmorphone INJ 1 MG/ML SYRINGE IV PRN ×2 (14:58→18:27)
[2021-12-20] MEDS: oxyCODONE HCL IR 5 MG TAB (IMMEDIATE RELEASE) PO PRN (16:54)
--- NOTE | 2021-12-20 18:18 | Billing Data ---
Date of Service December 20, 2021 Coding Level of Care Code 61669 Subseq Hosp Care Lvl 2
[2021-12-20] MEDS: CLINDAMYCIN 600 MG in DEXTROSE 5% 50 ML IV SCH (18:28)
[2021-12-20] MEDS: ADVANCED PROBIOTIC 1250 MG CAPSULE PO SCH (21:45)
[2021-12-20] MEDS: PANTOprazole 40 MG TAB PO SCH (21:45)
[2021-12-20] MEDS: CYANOCOBALAMIN (B-12) 500 MCG TABLET PO SCH (21:46)
[2021-12-20] MEDS: DOCUSATE SODIUM/SENNA 50/8.6MG TAB PO SCH (21:46)
[2021-12-20] MEDS: amLODIPine BESYLATE 5 MG TAB PO SCH (21:46)
[2021-12-21] MEDS: HYDROmorphone INJ 1 MG/ML SYRINGE IV PRN ×5 (02:36→22:24)
[2021-12-21] MEDS: SODIUM CHLORIDE 0.9% 1000ML 1,000 ML IV SCH (02:38)
[2021-12-21] MEDS: CLINDAMYCIN 600 MG in DEXTROSE 5% 50 ML IV SCH (02:39)
[2021-12-21] MEDS: POLYETHYLENE (MIRALAX) 17 GM PACK PO SCH ×3 (05:42→15:56)
[2021-12-21] MEDS: oxyCODONE HCL IR 5 MG TAB (IMMEDIATE RELEASE) PO PRN ×2 (06:27→12:33)
--- NOTE | 2021-12-21 07:04 | Hospitalist Progress Note ---
Date of Service December 21, 2021 Assessment & Plan (1) Lumbar disc herniation with radiculopathy: Plan: Raegan Gallego is a 76yo female with PMHx significant for HTN (on Amlodipine), borderline JONATAN, GERD and constipation who was admitted to [facility] on 12/19 for progressively worsening radiculopathy due to L4-L5 disc herniation. Ortho on board as primary team, with plans for urgent decompression and fusion. We were consulted for med management. Lumbar Disc Herniation with Radiculopathy - Patient's revised cardiac index score is 0, with 3.9% 30-day risk of , [place] or cardiac arrest. Chronic medical conditions are stable and well-controlled. - Underwent urgent decompression/fusion with Ortho 12/20 -- no complications, patient doing well - s/p Decadron x1 - Continue graduated pain management regiment per Ortho: Tylenol/Tramadol/Oxycodone/Dilaudid - Continue PRNs for anxiety and nausea Hyponatremia - resolved - Na 133, patient asymptomatic, likely 2/2 mild dehydration. - Continue to monitor HTN Continues to be well-controlled - continue Amlodipine 2.5mg PO daily - continue pain regimen as stated above GERD - Protonix per hospital formulary JONATAN - Borderline per home sleep study. Does not use CPAP. - no management necessary at this time FEN/GI: Currently full liquid, advance as tolerated DVT Prophylaxis: SCDs, defer chemoppx to primary team Code Status: full code Disposition: med/surg, will defer timing of post-op PT/OT to primary team Thank you for this consult. Please refer to Dr. Kc's addendum for further documentation. We will continue to follow along with you. (2) Hypertension: (3) Sleep apnea: (4) GERD (gastroesophageal reflux disease): Admission and Anticipated Discharge Date Admission Date: December 19, 2021 Supervising Physician Co-Signing Physician Notes I personally examined the patient and verified all neff points of history and exam, discussed case, and agree with decision making with Dr Hudson. leg still weak, pain better. Vitals noted, in general she is awake and alert pleasant no distress. HEENT normocephalic atraumatic mucous membranes moist. Breathing unlabored no accessory muscle use good effort. No calf tenderness. Skin without rashes, pallor, icterus. Lumbar disc herniation/lumbar radiculopathynow improved postop. Per surgery. PT/OT eval and treat ongoing Hypertensionblood pressures quite reasonable given the situation. Continue/follow. acute blood loss anemia - not unexpected. no indication for transfusion at this time. continue to follow DVT prophylaxisSCDs Otherwise as above Subjective No acute events overnight. Patient doing well s/p back surgery, pain is well- controlled overall but she does find it difficult to move very much as this exacerbates the pain. She denies f/c, n/v, abd pain, swelling, weakness, numbness. Review of Systems Review of Systems: per subjective Physical Exam Physical Exam: General: A&Ox3. NAD. Cooperative. HEENT: Atraumatic, normocephalic. Pulm: Symmetrical chest rise. No increase work of breathing. No respiratory distress. Cardiac: RRR. Radial pulses intact and symmetrical. Results & Data Results & Data ([facility]) Vital Signs (Past 12 Hours) Vital Signs Temp Pulse Resp BP Pulse Ox 12/21/21 02:30 36.6 C 69 16 148/81 H 95 12/20/21 22:11 36.5 C 65 16 119/73 98 12/20/21 19:17 36.8 C 60 16 105/67 93 Resident Activity Tracking Resident Involvement: Resident Care Provided Care Provided: Adult Hospital Medicine
[2021-12-21 07:56] LABS: Mean Corpuscular Hgb Conc 32.6 g/dL (32-36); Mean Platelet Volume 10.2 fL (7.4-10.4); Platelet Count 250 K/uL (130-400)
[2021-12-21 08:37] LABS: BUN Creatinine Ratio 23.7 (10-20); Basophils # (auto) 0.01 K/uL (0-0.2); Basophils % (auto) 0.1 %; Calcium 7.7 mg/dl (8.5-10.1); Creatinine Clr Calc Pharmacy 58.8 ml/min; Est GFR (African American) 89.6 ml/min; Est GFR (Non-African American) 77.3 ml/min; Hematocrit (blood only) 28.2 % (37-47); Hemoglobin 9.2 g/dL (12.0-16.0); Immature Granulocytes # (auto) 0.03 K/uL (0.00-0.02); Immature Granulocytes % (auto) 0.3 %; Lymphocytes # (auto) 1.49 K/uL (1.2-3.4); Lymphocytes % (auto) 12.7 %; Mean Corpuscular Hemoglobin 32.3 pg (25-34); Mean Corpuscular Volume 98.9 fL (80-100); Monocytes # (auto) 0.95 K/uL (0.11-0.59); Monocytes % (auto) 8.1 %; Neutrophils # (auto) 9.21 K/uL (1.4-6.5); Neutrophils % (auto) 78.8 %; Potassium 4.1 mmol/L (3.5-5.1); RDW Coefficient of Variation 14.3 % (11.5-14.5); RDW Standard Deviation 51.5 fL (36.4-46.3); Red Blood Count 2.85 M/uL (4.2-5.4); White Blood Count 11.69 K/uL (4.8-10.8)
[2021-12-21] MEDS: dexAMETHasone 6 MG in SYRINGE 0 ML IV SCH (08:45)
--- NOTE | 2021-12-21 11:57 | Orthopedic Progress Note ---
Date of Service December 21, 2021 Assessment & Plan (1) Lumbar disc herniation with radiculopathy: Plan: At this time initiate physical therapy monitor EMRYL output hopefully discharge home or consider rehab in the next few days. Admission and Anticipated Discharge Date Admission Date: December 19, 2021 Subjective Patient struggling with significant back pain but leg pain markedly improved. Physical Exam Physical Exam: Patient is in bed. She still has deficits to the right foot. Sensory intact. Results & Data ([facility]) Vital Signs (Past 12 Hours) Vital Signs Temp Pulse Resp BP Pulse Ox 12/21/21 11:06 36.8 C 67 18 124/65 96 12/21/21 07:37 36.7 C 70 20 121/68 94 12/21/21 02:30 36.6 C 69 16 148/81 H 95
--- NOTE | 2021-12-21 18:35 | Billing Data ---
Date of Service December 21, 2021 Coding Level of Care Code 81280 Subseq Hosp Care Lvl 2
[2021-12-21] MEDS: ACETAMINOPHEN 500 MG TAB PO PRN (20:22)
[2021-12-21] MEDS: amLODIPine BESYLATE 5 MG TAB PO SCH (20:22)
[2021-12-21] MEDS: DOCUSATE SODIUM/SENNA 50/8.6MG TAB PO SCH (20:23)
[2021-12-21] MEDS: PANTOprazole 40 MG TAB PO SCH (20:23)
[2021-12-21] MEDS: ADVANCED PROBIOTIC 1250 MG CAPSULE PO SCH (20:23)
[2021-12-22] MEDS: POLYETHYLENE (MIRALAX) 17 GM PACK PO SCH ×5 (00:26→23:18)
[2021-12-22] MEDS: traMADol HCL 50 MG TABLET PO PRN ×4 (02:35→22:22)
--- NOTE | 2021-12-22 07:36 | Hospitalist Progress Note ---
Date of Service December 22, 2021 Assessment & Plan (1) Lumbar disc herniation with radiculopathy: Plan: Raegan Gallego is a 76yo female with PMHx significant for HTN (on Amlodipine), borderline JONATAN, GERD and constipation who was admitted to [facility] on 12/19 for progressively worsening radiculopathy due to L4-L5 disc herniation. Ortho on board as primary team, with plans for urgent decompression and fusion. We were consulted for med management. Lumbar Disc Herniation with Radiculopathy - Patient's revised cardiac index score is 0, with 3.9% 30-day risk of , [place] or cardiac arrest. Chronic medical conditions are stable and well-controlled. - Underwent urgent decompression/fusion with Ortho 12/20 -- no complications, patient doing well - s/p Decadron x2 - Continue graduated pain management regiment per Ortho: Tylenol/Tramadol/Oxycodone/Dilaudid - Continue PRNs for anxiety and nausea Post-Op Anemia - Hemodynamically stable - No indication for transfusion at this timee - Transfuse for Hgb < 7 - Monitor H/H HTN Continues to be well-controlled - continue Amlodipine 2.5mg PO daily - continue pain regimen as stated above Hyponatremia - resolved - Na 133, patient asymptomatic, likely 2/2 mild dehydration. - Continue to monitor GERD - Protonix per hospital formulary JONATAN - Borderline per home sleep study. Does not use CPAP. - no management necessary at this time FEN/GI: Currently full liquid, advance as tolerated DVT Prophylaxis: SCDs, defer chemoppx to primary team Code Status: full code Disposition: med/surg, will defer timing of post-op PT/OT to primary team Thank you for this consult. Please refer to Dr. Kc's addendum for further documentation. We will continue to follow along with you. (2) Hypertension: (3) Sleep apnea: (4) GERD (gastroesophageal reflux disease): Admission and Anticipated Discharge Date Admission Date: December 19, 2021 Supervising Physician Co-Signing Physician Notes I personally examined the patient and verified all neff points of history and exam, discussed case, and agree with decision making with Dr Hudson. leg still weak but maybe slightly improved. doesn't think she could handle 3hrs/day of rehab at [facility]. would be OK w SNF but doesn't want to wait a long time for bed. thinsk with some modifications (most notably a bed on the first floor) she could do OK at home and do rehab as outpt. no weakness/lightheadedness. Vitals noted, in general she is awake and alert pleasant no distress. HEENT normocephalic atraumatic mucous membranes moist. Breathing unlabored no accessory muscle use good effort. No calf tenderness. Skin without rashes, pallor, icterus. Lumbar disc herniation/lumbar radiculopathynow improved postop. Per surgery. PT/OT eval and treat ongoing - discharge planning Hypertensionblood pressures quite reasonable given the situation. Continue amlodipine acute blood loss anemia - not unexpected. no indication for transfusion at this time. continue to follow Hgb periodically DVT prophylaxisSCDs Otherwise as above, medically stable - would continue current med management. follow periodic Hgb (daily to every other day until plateaued) and transfuse if symptoms or if <7. will sign off at this time, don't hesitate to reach out if further assistance needed. Subjective No acute events overnight. Significant lower back pain, she feels that she is unable to move very much due to it. Mentions that Tylenol, tramadol, Dilaudid worked reasonably well for scaled coverage but does not feel oxycodone helps at all. She hopes to be able to work with physical therapy today but is unsure if she will be able to do so secondary to pain. Denies grogginess with the medication. No fever, chills, nausea, vomiting, abdominal pain, chest pain, palpitations, shortness of breath. Review of Systems Review of Systems: per subjective Physical Exam Physical Exam: General: A&Ox3. NAD. Cooperative. HEENT: Atraumatic, normocephalic. Pulm: Symmetrical chest rise. No increase work of breathing. No respiratory distress. Cardiac: RRR. Radial pulses intact and symmetrical. Results & Data Results & Data ([facility]) Vital Signs (Past 12 Hours) Vital Signs Temp Pulse Resp BP Pulse Ox 12/21/21 22:13 37 C 80 16 136/81 94 Resident Activity Tracking Resident Involvement: Resident Care Provided Care Provided: Adult [facility] Medicine
[2021-12-22 08:25] LABS: Basophils # (auto) 0.01 K/uL (0-0.2); Basophils % (auto) 0.1 %; Eosinophils # (auto) 0.02 K/uL (0-0.5); Eosinophils % (auto) 0.2 %; Hematocrit (blood only) 26.3 % (37-47); Hemoglobin 8.6 g/dL (12.0-16.0); Immature Granulocytes # (auto) 0.03 K/uL (0.00-0.02); Immature Granulocytes % (auto) 0.3 %; Lymphocytes # (auto) 1.72 K/uL (1.2-3.4); Lymphocytes % (auto) 17.9 %; Mean Corpuscular Hemoglobin 32.2 pg (25-34); Mean Corpuscular Hgb Conc 32.7 g/dL (32-36); Mean Corpuscular Volume 98.5 fL (80-100); Mean Platelet Volume 9.5 fL (7.4-10.4); Monocytes # (auto) 0.84 K/uL (0.11-0.59); Monocytes % (auto) 8.7 %; Neutrophils % (auto) 72.8 %; Platelet Count 208 K/uL (130-400); RDW Coefficient of Variation 14.2 % (11.5-14.5); RDW Standard Deviation 50.9 fL (36.4-46.3); Red Blood Count 2.67 M/uL (4.2-5.4); White Blood Count 9.62 K/uL (4.8-10.8)
[2021-12-22 08:58] LABS: BUN Creatinine Ratio 14.7 (10-20); Calcium 7.7 mg/dl (8.5-10.1); Creatinine Clr Calc Pharmacy 65.7 ml/min; Est GFR (African American) 99.9 ml/min; Est GFR (Non-African American) 86.2 ml/min; Potassium 3.6 mmol/L (3.5-5.1)
[2021-12-22] MEDS: dexAMETHasone 6 MG in SYRINGE 0 ML IV SCH (09:27)
--- NOTE | 2021-12-22 13:05 | Billing Data ---
Date of Service December 22, 2021 Coding Level of Care Code 88746 Subseq Hosp Care Lvl 2
[2021-12-22] MEDS: ACETAMINOPHEN 500 MG TAB PO PRN (13:28)
--- NOTE | 2021-12-22 14:11 | Orthopedic Progress Note ---
Date of Service December 22, 2021 Assessment & Plan (1) Lumbar disc herniation with radiculopathy: Plan: This time continue physical therapy monitor MERYL output hopefully get her to rehab in the next day or so. Admission and Anticipated Discharge Date Admission Date: December 19, 2021 Subjective Patient's back pain is controlled leg symptoms markedly improved. Physical Exam Physical Exam: On exam she continues to demonstrate strength deficits to the r ight lower extremity though it is improved. She is comfortable. Results & Data ([facility]) Vital Signs (Past 12 Hours) Vital Signs Temp Pulse Resp BP Pulse Ox 12/22/21 11:42 37.3 C 70 16 144/89 H 95 12/22/21 07:00 36.7 C 67 16 130/63 95
[2021-12-22] MEDS: DOCUSATE SODIUM/SENNA 50/8.6MG TAB PO SCH (20:19)
[2021-12-22] MEDS: amLODIPine BESYLATE 5 MG TAB PO SCH (20:20)
[2021-12-22] MEDS: PANTOprazole 40 MG TAB PO SCH (20:20)
[2021-12-22] MEDS: CYANOCOBALAMIN (B-12) 500 MCG TABLET PO SCH (20:20)
[2021-12-22] MEDS: ADVANCED PROBIOTIC 1250 MG CAPSULE PO SCH (20:57)
[2021-12-23] MEDS: traMADol HCL 50 MG TABLET PO PRN ×3 (02:32→16:34)
[2021-12-23] MEDS: POLYETHYLENE (MIRALAX) 17 GM PACK PO SCH ×4 (05:14→23:49)
[2021-12-23] MEDS: dexAMETHasone 6 MG in SYRINGE 0 ML IV SCH (08:16)
--- NOTE | 2021-12-23 09:32 | Orthopedic Progress Note ---
Date of Service December 23, 2021 Assessment & Plan (1) Lumbar disc herniation with radiculopathy: Plan: Patient is orthopedically stable. Currently awaiting bed availability from a rehab facility locally. Once this is available she will be discharged. We will DC MERYL drain to just prior to discharge. Otherwise continue physical therapy. Continue bowel regimen. Continue pain control. Admission and Anticipated Discharge Date Admission Date: December 19, 2021 Subjective Patient is postoperative day 3 from posterior lumbar decompression fusion L4-S1. She has not had a bowel movement but she states she has history of irritable bowel and this is normal for her. MERYL drain output last shift was 80 cc. Ambulating about 50 feet in physical therapy. No other complaints. Leg symptoms greatly improved. Back pain is controlled Review of Systems Review of Systems: All systems reviewed & are unremarkable except as noted in HPI & below Physical Exam Physical Exam: Alert and oriented x3 No acute distress Sitting in bed eating breakfast Lumbar dressing is clean dry and intact with functioning MERYL drain Strength is improving bilateral lower extremities Results & Data ([facility]) Vital Signs (Past 12 Hours) Vital Signs Temp Pulse Pulse Resp BP Pulse Ox 12/23/21 07:29 36.7 C 68 18 132/82 95 12/22/21 22:40 36.5 C 64 16 130/77 97
[2021-12-23] MEDS: ACETAMINOPHEN 500 MG TAB PO PRN (11:44)
[2021-12-23] MEDS: DOCUSATE SODIUM/SENNA 50/8.6MG TAB PO SCH (20:28)
[2021-12-23] MEDS: PANTOprazole 40 MG TAB PO SCH (20:28)
[2021-12-23] MEDS: ADVANCED PROBIOTIC 1250 MG CAPSULE PO SCH (20:28)
[2021-12-23] MEDS: amLODIPine BESYLATE 5 MG TAB PO SCH (20:28)
[2021-12-24] MEDS: ACETAMINOPHEN 500 MG TAB PO PRN ×3 (01:45→23:42)
[2021-12-24] MEDS: POLYETHYLENE (MIRALAX) 17 GM PACK PO SCH ×4 (05:07→20:05)
[2021-12-24] MEDS: traMADol HCL 50 MG TABLET PO PRN ×3 (06:38→20:09)
--- NOTE | 2021-12-24 12:17 | Orthopedic Progress Note ---
Date of Service December 24, 2021 Assessment & Plan (1) Lumbar disc herniation with radiculopathy: Plan: This time we will continue physical therapy monitor MERYL output sounds like she is not approved for rehab. Subsequently will try to arrange home health and discharge home this weekend. Admission and Anticipated Discharge Date Admission Date: December 19, 2021 Subjective Back pain getting better. Leg pain improved. Physical Exam Physical Exam: Patient is in bed. She appears comfortable. She still has foot drop on the right but sensory is intact. Results & Data ([facility]) Vital Signs (Past 12 Hours) Vital Signs Temp Pulse Resp BP Pulse Ox 12/24/21 07:07 36.8 C 65 16 158/78 H 98
[2021-12-24] MEDS: ADVANCED PROBIOTIC 1250 MG CAPSULE PO SCH (20:04)
[2021-12-24] MEDS: CYANOCOBALAMIN (B-12) 500 MCG TABLET PO SCH (20:04)
[2021-12-24] MEDS: amLODIPine BESYLATE 5 MG TAB PO SCH (20:04)
[2021-12-24] MEDS: PANTOprazole 40 MG TAB PO SCH (20:04)
[2021-12-24] MEDS: DOCUSATE SODIUM/SENNA 50/8.6MG TAB PO SCH (20:05)
[2021-12-25] MEDS: POLYETHYLENE (MIRALAX) 17 GM PACK PO SCH ×5 (00:46→20:48)
[2021-12-25] MEDS: traMADol HCL 50 MG TABLET PO PRN ×4 (02:56→22:10)
[2021-12-25] MEDS: ACETAMINOPHEN 500 MG TAB PO PRN ×2 (07:56→16:49)
--- NOTE | 2021-12-25 08:28 | Orthopedic Progress Note ---
Date of Service December 25, 2021 Assessment & Plan (1) Lumbar disc herniation with radiculopathy: Plan: This time we will continue with physical therapy today monitor MERYL output. Anticipate discharge home tomorrow with home health. Admission and Anticipated Discharge Date Admission Date: December 19, 2021 Subjective Patient's back pain leg pain steadily improving. Physical Exam Physical Exam: On exam she is in a chair at the bedside. She does appear comfortable. She still has a foot drop on the right but strength appears to be improving. Results & Data ([facility]) Vital Signs (Past 12 Hours) Vital Signs Temp Pulse Resp BP Pulse Ox 12/25/21 07:17 36.9 C 68 16 158/73 H 97 12/24/21 23:23 37.0 C 62 16 144/84 H 95
[2021-12-25] MEDS: DOCUSATE SODIUM/SENNA 50/8.6MG TAB PO SCH (20:18)
[2021-12-25] MEDS: PANTOprazole 40 MG TAB PO SCH (20:19)
[2021-12-25] MEDS: amLODIPine BESYLATE 5 MG TAB PO SCH (20:19)
[2021-12-25] MEDS: ADVANCED PROBIOTIC 1250 MG CAPSULE PO SCH (20:19)
[2021-12-26] MEDS: traMADol HCL 50 MG TABLET PO PRN ×3 (05:28→16:03)
[2021-12-26] MEDS: ACETAMINOPHEN 500 MG TAB PO PRN (08:18)
[2021-12-26] MEDS: POLYETHYLENE (MIRALAX) 17 GM PACK PO SCH ×2 (11:34→17:14)
--- NOTE | 2021-12-26 11:54 | Orthopedic Progress Note ---
Date of Service December 26, 2021 Assessment & Plan (1) Lumbar disc herniation with radiculopathy: Plan: At this time we will continue physical therapy we will discontinue her drain today as well as change her dressing. Plan for discharge home tomorrow with home health. Admission and Anticipated Discharge Date Admission Date: December 19, 2021 Subjective Back pain controlled overall her leg symptoms are improved. She feels that she is struggling a bit more today than yesterday. Physical Exam Physical Exam: On exam she is in the chair at the bedside. She has continued foot drop on the right however it seems to be improving. Sensory is intact. Results & Data ([facility]) Vital Signs (Past 12 Hours) Vital Signs Temp Pulse Resp BP Pulse Ox 12/26/21 07:51 37 C 72 16 145/73 H 98
[2021-12-26] MEDS: oxyCODONE HCL IR 5 MG TAB (IMMEDIATE RELEASE) PO PRN (20:35)
[2021-12-26] MEDS: DOCUSATE SODIUM/SENNA 50/8.6MG TAB PO SCH (20:35)
[2021-12-26] MEDS: ADVANCED PROBIOTIC 1250 MG CAPSULE PO SCH (20:36)
[2021-12-26] MEDS: amLODIPine BESYLATE 5 MG TAB PO SCH (20:37)
[2021-12-26] MEDS: PANTOprazole 40 MG TAB PO SCH (20:37)
[2021-12-27] MEDS: traMADol HCL 50 MG TABLET PO PRN ×3 (00:12→11:00)
[2021-12-27] MEDS: POLYETHYLENE (MIRALAX) 17 GM PACK PO SCH ×3 (02:24→12:57)
--- NOTE | 2021-12-27 12:47 | Discharge Summary ---
Date of Service December 27, 2021 Admission HPI Per Admitting Provider This a very pleasant 76-year-old female who presents with marked decline in status with the past several days. She believes that Monday she was shoveling had the onset of worsening back pain that progressed throughout the past several days. She now notes the inability to ambulate and was taken to emergency room. Pain radiates the bilateral buttocks posterior thigh into her feet. She has a foot drop established in the right foot none on the left. She denies any loss of bowel bladder control at this time. Principal Diagnosis Lumbar spinal stenosis with neurogenic claudication Discharge Data Allergies Allergy/AdvReac Type Severity Reaction Status Date / Time Penicillins Allergy Unknown hives Verified 12/19/21 15:46 azithromycin AdvReac Mild diarrhea Verified 12/19/21 15:46 [From Zithromax Z-Aaron] codeine AdvReac Unknown nausea/vomi Verified 12/19/21 15:46 ting lansoprazole AdvReac Unknown diarrhea Verified 12/19/21 15:46 Consultations 12/19/21 16:07 ED Decision to Admit Stat 12/19/21 18:26 Consult Internal Medicine Routine Procedures Performed Operation Date: 12/20/21 07:50 Actual Procedures p L4-S1 Decompression and Fusion(Not Applicable) - Spenser Salazar, Ordered Studies 12/19/21 14:05 MR lumbar spine wo con Stat 12/20/21 07:45 FL lumbar spine 2-3V Routine Hospital Course (1) Lumbar disc herniation with radiculopathy: Patient was admitted with significant back and leg pain and weakness. Subsequently underwent lumbar decompression fusion the following day. She progressed appropriately postoperatively. Her MERYL drain decreased appropriate throughout her stay. Traction activity and strength improved. Separately she was discharged with home health. Discharge instructions found in chart for further view. Total Time Total Time Spent Total Time Spent (In Minutes): 20 minutes Discharge Plan Discharge Items Patient Disposition: Home - Home Health Services Reason For Visit: SPINAL STENOSIS WITH LEG WEAKNESS Discharge Diagnosis: Spinal stenosis with neurologic deficit Activity: As commented below Lifting: None Bathing Comment: may shower 3/3 Exercise/Sports: None Non-emergency contact: Primary Care Provider Call non-emergency contact if: you have any medication questions Follow-up/Referrals: Hunter Michael MD [Primary Care Provider] - 03/14/22 3:45 pm Diet: Regular Addtl Attending Provider Instructions: ACTIVITY RECOMMENDATIONS: SELF CARE INSTRUCTIONS AFTER THORACIC/LUMBAR FUSIONS 1. You may walk to your tolerance. It is good exercise for your legs and back. Expect some back and intermittent leg aches and pains. 2. You may perform "counter-top" level activities (make a sandwich, luke with a project, etc.). 3. No bending or lifting of more than 10 pounds or back twisting of any nature (roll like a log when turning in bed). 4. You may ride in a car for 20-30 minutes at a time. No driving until after your first visit with your doctor. 5. Frequent changes of position and restricting sitting to 30 minutes at a time will help limit the amount of back spasms and stiffness you may experience. 6. You may discontinue the use of ambulatory aids (cane, crutches, etc.) once your strength and confidence allow. 7. You may slice cutting machine operator helper the shower and let water strike your incision when you arrive home at least once daily. Do not take a tub bath, sit in a hot tub or go into a swimming pool until after your first recheck in the office. SPECIAL CARE INSTRUCTIONS: VERY IMPORTANT TO READ AND REVIEW A. Your surgical incision has been closed with a cosmetic suture under the skin that will dissolve in about 6 weeks. In 14 days, you can use a pair of clean scissors and cut the suture that is left outside of the skin at the ends of your incision. 1. The small skin tapes can be removed 7 days after surgery if they have not fallen off by that point. 2. You may keep the wound open to air as much as possible to promote healing after post-op day number 5 unless told otherwise by your doctor. 3. If you think the wound looks like it is becoming infected (redness or worsening drainage) and/or you are experiencing fever, chill or worsening back pain and muscle spasms, contact the office so that we may evaluate you as soon as possible. B. Complications are uncommon, but please contact us if you have any signs or symptoms of: 1. wound infection (fever higher than 102.5 degrees F, redness, separation of wound, drainage, or increasing pain from the incision) 2. blood clots in legs (pain, swelling, redness and warmth in legs) 3. urinary tract infection (fever higher than 102.5 degrees F, burning upon urination or increased frequency of urination) 4. nerve problems (inability to walk on your toes or heels, numbness, loss of bowel or bladder control) 5. any other symptoms that concern you C. Please call the office at if you have any concerns or questions about your operation or recovery. D. No smoking! Smoking drastically decreases the chance of a solid fusion. E. Do not take any anti-inflammatory medications (Indocin, Advil, Motrin, Aspirin, Naprosyn, etc.) as these may inhibit the chance of a solid fusion. Tylenol is okay to take for pain. MANAGING PAIN AFTER SPINAL SURGERY 1. Narcotic medication is intended for short-term use and will be provided for surgical pain. Surgical pain usually lasts for a period of 4-6 weeks. Narcotic medication includes Percocet, Vicodin, Darvocet, Tylenol #3 or Lortab. 2. Longer-term pain is more appropriately treated with non-narcotic medication such as Tylenol ES. 3. Muscle spasm is not appropriately treated with narcotics. Muscle relaxers such as Soma, Flexeril or Skelaxin can be used along with Tylenol ES. 4. Remember that we all live with some "aches and pains". This is not unusual or uncommon after an injury or as we get older. a. Back pain is expected and may include muscle spasms for 4 to 6 weeks after surgery. The pain should gradually improve. If the pain worsens for no apparent reason, please contact the office. b. Intermittent leg pain may also be experienced and should not be concerned about unless it worsens for no apparent reason. If so, please contact the office. 5. We will provide appropriate medication within the normal guidelines of their prescribed use. We will also be very cautious and aware of potential abuse and extended duration of patients' medication needs. a. Pain medications are for your comfort and to assist with sleep and rest so that the tissue can heal. They are not provided in order to return to normal activity and should not be used through the day. To do so or worsening pain at night can result from ongoing tissue damage and development of tolerance to the prescribed medicine. 6. Please allow 2-3 days to process refills. Prescriptions will not be mailed but must be picked up at the office. FOLLOW UP VISIT: Keep your scheduled follow-up appointment. Any questions, please call the office at . Pending Studies at Discharge: No Stand-Alone Forms: [facility], Smoking Cessation Medications and DC Order Prescriptions: New tramadol 50 mg tablet 50 mg PO Q6H PRN (Reason: pain, moderate) Qty: 30 RF: 0 oxycodone 5 mg tablet 5 mg PO Q6H PRN (Reason: pain, severe) Qty: 30 RF: 0 Continued resveratrol 200 MG tablet 1 tab PO QPM RF: 0 turmeric 400 mg Capsule 400 mg PO QPM RF: 0 celecoxib [Celebrex] 200 mg Capsule 200 mg PO BID RF: 0 cyanocobalamin (vitamin B-12) [Vitamin B-12] 1,000 mcg Tablet 1,000 mcg PO 3XWK RF: 0 esomeprazole magnesium [Nexium] 40 mg Capsule,Delayed Release(Dr/Ec) 40 mg PO QPM RF: 0 loperamide-simethicone [Imodium Multi-Symptom Relief] 2-125 mg Tablet 1.5 tab PO QPM PRN (Reason: Takes in the evening if needed as a second dose) RF: 0 Restasis 0.05 % Dropperette 2 drp OPB BID RF: 0 Probiotic 3 billion cell Capsule 3,000 mmu cells PO QPM RF: 0 Vitamin P-Y-R-Iodine 1 tab PO 3XWK RF: 0 amlodipine 2.5 mg Tablet 2.5 mg PO QPM RF: 0 acetaminophen [Tylenol Arthritis Pain] 650 mg Tablet Extended Release 1,300 mg PO Q12H PRN (Reason: Pain) RF: 0 Saline Nasal Mist 0.65 % Aerosol,W[place]att 2 spray INTRANASAL HS PRN (Reason: Nasal Dryness) RF: 0 loratadine 10 mg Tablet 10 mg PO PM PRN (Reason: seasonal allergies) RF: 0 clindamycin HCl 300 mg capsule 600 mg PO ONCE RF: 0 tramadol 50 mg Tablet 50 mg PO BID PRN (Reason: Pain) RF: 0 Discharge Orders: Discharge Order (Routine); Ordered 12/27/21 Ordered By: Spenser Salazar Admission Data Admit Date/Time: 12/19/21 17:31 Attending Provider: Spenser Salazar Admit Provider: Spenser Salazar Primary Care Provider: Hunter Michael. Other Providers: Baljeet Kc ; Spenser Salazar ; Demarcus Fraga ; St[facility] ; [facility] ; [facility] ; [facility]
[2021-12-27] MEDS: oxyCODONE HCL IR 5 MG TAB (IMMEDIATE RELEASE) PO PRN (13:53)
== END 2021-12-27 15:46 | disposition home health service (06) | DRG 454 ==
LOC: ED 13:44 → 3N 17:31